=== PATIENT | female | born 1950 | race Caucasian/White ===

== ENCOUNTER 2021-04-09 15:49 | Inpatient (IN) | payer MEDICARE, OTHER ==
[~2021-04-09] VITALS: Ht 160 cm; Wt 77.6 kg
[~2021-04-09 15:49] MED LIST: BUPR150ER PO; LISI20 PO; LOSA50 PO; METO50ER; Norco 5-325 Ta1 EACH PO; SYNTHROID25 MCG PO; VENL37.5ER PO
[2021-04-09 16:34] LABS: BASOPHILS ABSOLUTE AUTO 0.01 K/mm3 (0.00-0.23); BASOPHILS PERCENT AUTO 0 % (0-2); EOSINOPHILS PERCENT AUTO 0 % (0-6); Hematocrit 41.3 % (33.0-51.0); Hemoglobin 13.6 g/dL (11.5-16.0); IMMATURE GRAN ABSOLUTE AUTO 0.05 K/mm3 (0.00-0.10); IMMATURE GRAN PERCENT AUTO 1 % (0-1); LYMPHOCYTES ABSOLUTE AUTO 1.21 K/mm3 (0.84-5.20); LYMPHOCYTES PERCENT AUTO 22 % (21-46); MONOCYTES ABSOLUTE AUTO 0.32 K/mm3 (0.16-1.47); MONOCYTES PERCENT AUTO 6 % (4-13); Mean Corpuscular HGB 31.1 pg (26.0-34.0); Mean Corpuscular HGB Conc 32.9 g/dL (31.5-36.5); Mean Corpuscular Volume 95 fL (80-100); Mean Platelet Volume 11.6 fL (9.1-12.4); NEUTROPHILS ABSOLUTE AUTO 3.97 K/mm3 (1.96-9.15); NEUTROPHILS PERCENT AUTO 71 % (41-73); Platelet Count 128 K/mm3 (150-400); RDW Standard Deviation 49.1 fL (35.1-46.3); Red Blood Cell Count 4.37 M/mm3 (3.80-5.20); White Blood Cell Count 5.56 K/mm3 (4.00-11.30)
[2021-04-09 16:56] LABS: Albumin, Blood 3.2 g/dL (3.4-5.0); Albumin/Globulin Ratio 0.7 (0.8-1.8); Bilirubin, Total 0.4 mg/dL (0.1-1.0); Calcium, Blood 8.6 mg/dL (8.5-10.1); Creatinine, Blood 1.06 mg/dL (0.40-1.00); Globulin, Blood 4.4 g/dL (2.2-4.0); Potassium, Blood 3.4 mmol/L (3.5-5.5); Total Protein, Blood 7.6 g/dL (6.4-8.2)
[2021-04-09] MEDS ORDERED: OMEP20ER PO (20:19)
[2021-04-09] MEDS ORDERED: ZINC15 PO (20:19)
[2021-04-09] MEDS ORDERED: [UNRECOGNIZED DRUG - CODE] PO (20:20)
--- NOTE | 2021-04-10 05:28 | NUR ---
SHIFT SUMMARY NEW ER ADMIT THIS SHIFT (2139) ON 5L O2, A&O, O2 NEEDS INCREASED TO 7L BY 2229 & DESATTING TO LOW 70'S ON 15L WHEN UP TO BSC, PLACED ON AIRVO @ 0100 (30L @ 70%) MAINTAINING SATS GREATER THAN 90%, MEDICATED W/TYLENOL 1X FOR TEMP 100.4 (REASSESS 97.8), REMAINS AFEBRILE THIS AM (97.7), SLEPT T/O THE NIGHT & SLEEPING AT THIS TIME, CALL LIGHT IN REACH, WILL CONT TO MONITOR UNTIL REPORT GIVEN TO DAY RN.
[2021-04-10 05:46] LABS: BASOPHILS ABSOLUTE AUTO 0.01 K/mm3 (0.00-0.23); BASOPHILS PERCENT AUTO 0 % (0-2); EOSINOPHILS PERCENT AUTO 0 % (0-6); Hematocrit 37.4 % (33.0-51.0); Hemoglobin 12.6 g/dL (11.5-16.0); IMMATURE GRAN ABSOLUTE AUTO 0.08 K/mm3 (0.00-0.10); IMMATURE GRAN PERCENT AUTO 1 % (0-1); LYMPHOCYTES ABSOLUTE AUTO 1.46 K/mm3 (0.84-5.20); LYMPHOCYTES PERCENT AUTO 22 % (21-46); MONOCYTES ABSOLUTE AUTO 0.26 K/mm3 (0.16-1.47); MONOCYTES PERCENT AUTO 4 % (4-13); Mean Corpuscular HGB 31.8 pg (26.0-34.0); Mean Corpuscular HGB Conc 33.7 g/dL (31.5-36.5); Mean Corpuscular Volume 94 fL (80-100); Mean Platelet Volume 11.8 fL (9.1-12.4); NEUTROPHILS PERCENT AUTO 72 % (41-73); Platelet Count 121 K/mm3 (150-400); RDW Coefficient Variation 14.1 % (11.7-14.2); RDW Standard Deviation 48.9 fL (35.1-46.3); Red Blood Cell Count 3.96 M/mm3 (3.80-5.20); White Blood Cell Count 6.51 K/mm3 (4.00-11.30)
[2021-04-10 06:03] LABS: Potassium, Blood 3.9 mmol/L (3.5-5.5)
--- NOTE | 2021-04-10 18:13 | NUR ---
SHIFT SUMMARY PATIENT ALERT AND ORIENTED THIS SHIFT. PATIENT ON AIRVO THROUGHOUT THIS SHIFT. RT IN THE ROOM ADJUSTING THE AIRVO MULTIPLE TIMES THIS SHIFT. PATIENT ENCOURAGED TO PRONE POSITION, WHICH SHE ONLY TOLERATED FOR APPROXIMATELY 1/2 HOUR. PATIENT ALSO MAINTAINED O2 SAT WELL IN LEFT SIDE LAYING POSITION. PATIENT IS A 1 ASSIST TO THE BEDSIDE COMODE. PATIENT DESATS WHEN TRANSFERING AND REQUIRES TIME TO REST BETWEEN SITTING UP AND STANDING. PATIENT ALTERNATED BETWEEN LYING AND SITTING UP IN BED THIS SHIFT, TALKING AND TEXTING ON HER PHONE WHEN NOT NAPPING. PATIENT CURRENTLY SITTING UP IN BED EATING DINNER.
--- NOTE | 2021-04-11 06:41 | NUR ---
SHIFT SUMMARY PT IS A 70 Y/O FEMALE, ADMITTED FOR PNA R/T COVID-19, AND CURRENTLY IN ENHANCED PRECAUTIONS. SHE IS A&O X 4, 1PA TO THE BSC. PT O2 DESATS TO THE 70S AND IS VERY DYSPNEIC WITH ANY EXERTION, AND IS EASILY TIRED. NO C/O ACUTE PAIN OR NAUSEA. VITAL SIGNS OTHERWISE STABLE. NO ACUTE CHANGES IN PT CONDITION NOTED DURING THE NIGHT. WILL CONTINUE TO MONITOR AND TREAT PER EMAR UNTIL HAND OFF TO DAY SHIFT RN.
--- NOTE | 2021-04-11 16:59 | NUR ---
SHIFT SUMMARY PATIENT ALERT AND ORIENTED THIS SHIFT. PATIENT REMAINS A 1 PERSON ASSIST TO THE BSC DUE TO O2 DESAT AND HELP WITH LINES AND CORDS. PATIENT IS PLEASANT AND COOPERATIVE WITH CARE. NO ACUTE CHANGES THIS SHIFT. PATIENT REMAINS ON AIRVO, SATING IN THE LOW 90S. PATIENT IS CURRENTLY LAYING IN BED RESTING.
--- NOTE | 2021-04-12 05:30 | NUR ---
SHIFT SUMMARY AOX4. COVID+. LUNGS DIM T/O. LABORED BREATHING c MINIMAL ACTIVITY, SUCH TRANSFER TO [facility]. SPO2 DROPS c TRANSFERS, ENCOURAGED USE OF BEDPAN, PT REFUSED. PT ON AIRVO AT BEGINNING OF SHIFT & TOLERATING WELL c SPO2 95-97%, ON 45L O2 & 45%. THEREFORE RT PLACED PT ON 10L HF NC AROUND 0300, SPO2 >90% UP UNTIL 0450 SPO2 SUSTAINED LOW 80'S, WHILE PT RESTING IN BED. INCREASED O2 TO 14L & SPO2 WOULD NOT INCREASE ABOVE 90% FOR OVER 15MIN. RT REPLACED V60 BIPAP/AIRVO @45L O2 & 45%, SPO2 90-92%. REST OF VITALS STABLE. DENIES N/V OR PAIN. REPORTS FEELING BLOATED, CONSTIPATED & LACK OF APPETITE, GAVE STOOL SOFTENER-NO BM YET. CALL LIGHT IN REACH. WCTM.
[2021-04-12 09:19] LABS: BASOPHILS ABSOLUTE AUTO 0.02 K/mm3 (0.00-0.23); BASOPHILS PERCENT AUTO 0 % (0-2); EOSINOPHILS PERCENT AUTO 0 % (0-6); Hematocrit 36.2 % (33.0-51.0); IMMATURE GRAN ABSOLUTE AUTO 0.16 K/mm3 (0.00-0.10); IMMATURE GRAN PERCENT AUTO 2 % (0-1); LYMPHOCYTES ABSOLUTE AUTO 1.31 K/mm3 (0.84-5.20); LYMPHOCYTES PERCENT AUTO 15 % (21-46); MONOCYTES ABSOLUTE AUTO 0.24 K/mm3 (0.16-1.47); MONOCYTES PERCENT AUTO 3 % (4-13); Mean Corpuscular HGB 31.1 pg (26.0-34.0); Mean Corpuscular HGB Conc 33.1 g/dL (31.5-36.5); Mean Corpuscular Volume 94 fL (80-100); Mean Platelet Volume 11.8 fL (9.1-12.4); NEUTROPHILS ABSOLUTE AUTO 7.06 K/mm3 (1.96-9.15); NEUTROPHILS PERCENT AUTO 80 % (41-73); Platelet Count 235 K/mm3 (150-400); RDW Coefficient Variation 14.4 % (11.7-14.2); RDW Standard Deviation 49.2 fL (35.1-46.3); Red Blood Cell Count 3.86 M/mm3 (3.80-5.20); White Blood Cell Count 8.79 K/mm3 (4.00-11.30)
[2021-04-12 09:48] LABS: Anion Gap 7 mmol/L (6-16); Blood Urea Nitrogen 27 mg/dL (8-24); Bun/Creatinine Ratio 29.6 (12.0-20.0); CO2, Blood 24 mmol/L (21-32); Calcium, Blood 8.1 mg/dL (8.5-10.1); Chloride, Blood 106 mmol/L (98-108); Creatinine, Blood 0.91 mg/dL (0.40-1.00); Glomerular Filtration Rate >60 (60-); Glucose, Blood 129 mg/dL (70-99); Potassium, Blood 3.8 mmol/L (3.5-5.5); Sodium, Blood 137 mmol/L (136-145)
--- NOTE | 2021-04-12 18:05 | NUR ---
Spiritual care note: Mrs. Hill was appreciative of prayer and rosary. She is a life-long Sikhism. She spoke at length about how "surprised" she and her contracted Covid-19. Apparently, both thought the media was "exaggerating." She admits to feeling fearful with the weakness caused by this illness. Mrs. Hill seems to have little understanding of this illness. She will benefit from an understandable explaination regarding what to expect moving forward. is at home and not quite as ill. She feels well-loved and supported by nieghbors and friends. she is hopeful for complete recovery and is satisfied with full-code status. We had an easy rapport and I will remain available.
--- NOTE | 2021-04-12 18:45 | NUR ---
SHIFT SUMMARY NAHOMI HAD CXR TH MORNING. DENIED PAIN. RT ATTEMPTED TO WEAN OFF AIRVO TO HIGH FLOW NC BUT PT DESATS TO LOW 70S. ON AIRVO 45L FLOW WITH 50% OXYGEN. SBA TO BSC, CALLING APPROPRIATELY. DENIES PAIN. TOOK MEDS PRESCRIBED. WCTM
--- NOTE | 2021-04-13 06:17 | NUR ---
SUMMARY PT O2 NEEDS DECREASED THIS SHIFT. PT CURRENTLY ON NC @ 12 LPM. PT STILL GETS SOB W/ EXERTION. PT DENIES PAIN OR FEVERS. PT CURRENTLY SLEEPING IN NO DISTRESS. CALL LIGHT IN REACH.
--- NOTE | 2021-04-13 17:33 | NUR ---
SUMMARY PT RESTING QUIETLY IN BED, WAKES EASILY, HAS BEEN ON 10-12L NC T/O THE DAY, OCC COUGHING FITS, DESATS WITH ANY ACTIVITY, PLEASANT AND COOPERATIVE WITH CARE, UP WITH 1P ASSIST, PREFERS PILLS IN APPLESAUCE, NO COMPLAINTS, WILL CONTINUE TO MONITOR
--- NOTE | 2021-04-14 05:13 | NUR ---
SHIFT SUMMARY PT IS A 70 Y/O FEMALE, ADMITTED WITH PNA R/T COVID19 AND CURRENTLY IN ENHANCED PRECAUTIONS. SHE IS A&O X 4, 1PA TO THE BSC. PT IS CURRENTLY ON 10-12 L O2 VIA NC. PT SATS IN THE 90S AT REST, BUT DESATS TO THE 70-80S WITH ANY EXERTION. VITAL SIGNS OTHERWISE STABLE. NO C/O ACUTE PAIN OR NAUSEA, BUT PT DOES REPORT DYSPNEA WITH EXERTION. NO OTHER ACUTE CHANGES IN PT CONDITION NOTED DURING THE NIGHT. WILL CONTINUE TO MONITOR AND TREAT PER EMAR UNTIL HAND OFF TO DAY SHIFT RN.
--- NOTE | 2021-04-14 17:04 | NUR ---
SUMMARY PT SITTING UP IN THE CHAIR AT THE BEDSIDE, PT HAS BEEN UP SEVERAL TIMES TO THE CHAIR AND TO THE COMMODE, PT IS A 1 PERSON ASSIST, PT DESATS INTO THE 70'S WITH ANY ACTIVITY, SEVERAL MINUTES OF INCREASED O2 NEEDED FOR PATIENT TO RECOVER, PT HAS BEEN ON 10-15 L HIGH FLOW O2 T/O THE DAY, DEPENDING ON ACTIVITY LEVEL, PT GIVEN INCENTIVE SPIROMETER AND EDUCATED ON ITS USE, ALSO ENCOURAGED MORE TIME UP IN THE CHAIR TO IMPROVE BREATHING, PT IS PLEASANT AND COOPERATIVE WITH CARE, VSS, WILL CONTINUE TO MONITOR
--- NOTE | 2021-04-14 17:14 | NUR ---
Spiritual care note: Kathleen appeared tired today and reports feeling weaker. I provided prayer at her request, but she was not up for more than this. [employer] will remain available.
--- NOTE | 2021-04-15 05:21 | NUR ---
SUMMARY PT O2 REQUIREMENTS WENT UP DURING THE NIGHT. PT IS BACK ON AIRVO. RT ANTICIPATES PT TRANSITIONING BACK TO NASAL CANNULA TODAY. PT CONTINUES TO HAVE DYSPNEA ON EXERTION. NO OTHER COMPLAINTS. PT DENIES CX PAIN. CALL LIGHT IN REACH. OF NOTE PT ONLY VOIDED ONCE THIS SHIFT. PT PO INTAKE IS LOW.
--- NOTE | 2021-04-15 12:05 | NUR ---
PT O2 STATUS THIS RN HAS BEEN CARING FOR PT THIS SHIFT. PT IS AOX4, BUT LETHARGIC AT TIMES. THIS RN ASSISTED PT TO [facility] AND PT O2 SATURATION DROPPED TO 63% WHILE ON 40 L AIRVO. T/O THIS AM, THIS RN OBSERVED PT SATS DROPPING TO 79% WHILE SLEEPING. SATS HAVE REMAINED STABLE AT 88-90% AT TIMES. THIS RN OBSERVED SATS AT 79% AND ENTERED ROOM WITH RT. RT INCREASED PT'S O2 REQUIREMENTS TO 50 L ON AIRVO. THIS RN ASSISTED RT WITH PRONING PT AT 1200 AND OBSERVED SATS GOING UP TO 95%. THIS RN CALLED DR. GUADALUPE AT 1210 AND SPOKE WITH PHYSICIAN ABOUT PT'S INCREASE IN OXYGEN REQUIREMENTS AND UNSTABLE OXYGEN STATUS. THIS RN RECOMMENDED TRANSFER TO PCU FOR GREATER MONITORING. DR. GUADALUPE IS AGREEABLE TO THIS. THIS RN WILL CONTINUE TO MONITOR PT STATUS.
[2021-04-15 13:09] LABS: Hematocrit 37.8 % (33.0-51.0); Hemoglobin 12.7 g/dL (11.5-16.0); Mean Corpuscular HGB 31.4 pg (26.0-34.0); Mean Corpuscular HGB Conc 33.6 g/dL (31.5-36.5); Mean Corpuscular Volume 93 fL (80-100); Mean Platelet Volume 10.5 fL (9.1-12.4); Platelet Count 153 K/mm3 (150-400); RDW Coefficient Variation 14.6 % (11.7-14.2); RDW Standard Deviation 50.6 fL (35.1-46.3); Red Blood Cell Count 4.05 M/mm3 (3.80-5.20); White Blood Cell Count 14.73 K/mm3 (4.00-11.30)
[2021-04-15 13:25] LABS: Bun/Creatinine Ratio 22.3 (12.0-20.0); Calcium, Blood 8.3 mg/dL (8.5-10.1); Creatinine, Blood 0.99 mg/dL (0.40-1.00); Potassium, Blood 4.1 mmol/L (3.5-5.5)
--- NOTE | 2021-04-15 16:33 | NUR ---
PT TRANSFER THIS RN TRANSFERRED PT TO PCU AT APPROXIMATELY 1620. PT IS AOX4. PT DENIES PAIN. PT IS ON 50 L VIA AIRVO WITH SATS AT 91-93%. THIS RN GAVE REPORT TO MINDA GUO. PT TRANSFERRED TO ROOM VIA BED ALONGSIDE GOLF COURSE KEEPER AND RT. THIS RN HAS PASSED OFF CARE TO MINDA GUO.
--- NOTE | 2021-04-15 18:00 | NUR ---
UPDATE AFTER RECIEVING PT FROM MEDICAL FLOOR, SPOKE WITH MINDA MCFARLAND REGARDING D.DIMER AND CHEST X-RAY RESULTS. MINDA MCFARLAND CALLED THIS RN BACK REGARDING DR. GUADALUPE'S PLAN IF PT CONT TO HAVE INCREASE IN OXYGEN DEMANDS. SEE PHYSICIAN NOTES.
--- NOTE | 2021-04-15 18:49 | NUR ---
SHIFT SUMMARY PT TRANSFERRED TO UNIT FROM MEDICAL FLOOR THIS AFTERNOON. AGREED WITH MEDICAL FLOOR RN'S ASSESSMENT OF PT. VS STABLE. OXYGEN SATURAION MAINTAINED ABOVE 92% ON AIRVO AT 60 L AND 90% FIO2. HR STABLE. BP STABLE. NO CP OR PRESSURE. PT SBA TO COMMODE NEEDED. PT DESATS DURING AMBULATION, ABLE TO RECOVER ONCE SEATED AND USES DEEP BREATHING. WILL CONT TO MONITOR UNTIL REPORT GIVEN TO NIGHTSHIFT RN.
--- NOTE | 2021-04-15 20:02 | NUR ---
PHYSICIAN NOTIFIED PHYSICIAN NOTIFIED OF PT'S INCREASE IN OXYGEN DEMAND FROM 50L TO 60L ON AIRVOW STILL AT 80% FIO2. PHYSICIAN ALSO NOTIFIED OF PREVIOUS PHYSICIAN NOTE REGARDING CT SCAN AND INCREASE IN ANTICOAGULAITON IF O2 DEMAND INCREASES.
--- NOTE | 2021-04-16 00:15 | NUR ---
PRONE WITH PENA CATHETER SIZE 16 COUDE PENA CATHETER WAS PLACED DUE TO PT'S SIGNIFICANT DECREASE IN SPO2 % W/ACTIVITY. SPO2 WAS DROPPING INTO THE LOW 80'S WITH USE OF THE BED WALTER WITH EXTENDED RECOVERY TIME. PT WAS REPORTED TO DROP INTO THE 70'S BY DAY SHIFT RN WHILE ATTEMPTING TO USE BSC. PT CONSENTED TO PENA CATHETER, EDUCATION WAS PROVIDED. PT WAS GIVEN 0.25 MG IV ATIVAN PRIOR TO PROCEDURE. PT CONSENTED TO PRONE POSITION. AIRVO SETTINGS 55 L 70% FIO2 SPO2 97% AFTER 5 MINUTES IN PRONE. SPO2 REMAINED >94% WHILE PENA WAS PLACED ON 60 L 90% FIO2. RT & REFRIGERATION SYSTEM INSTALLER NOTIFIED OF CHANGES. CALL LIGHT IN REACH, PT RESTING QUIETLY
[2021-04-16 01:36] LABS: Source, Urine Catheter
[2021-04-16 01:40] LABS: Bilirubin, Urine Neg (Neg); Blood, Urine Neg (Neg); Glucose Qualitative, Urine Neg (Neg); Ketones, Urine Neg (Neg); Leukocyte Esterase, Urine Neg (Neg); Nitrite, Urine Neg (Neg); Protein, Urine Neg (Neg); Urobilinogen, Urine NORM (Normal)
[2021-04-16 01:42] LABS: Appearance, Urine Clear (Clear); Color, Urine Yellow (P-Yellow)
[2021-04-16 03:50] LABS: Hematocrit 34.9 % (33.0-51.0); Hemoglobin 11.9 g/dL (11.5-16.0); Mean Corpuscular HGB 31.6 pg (26.0-34.0); Mean Corpuscular HGB Conc 34.1 g/dL (31.5-36.5); Mean Corpuscular Volume 93 fL (80-100); Mean Platelet Volume 10.8 fL (9.1-12.4); Platelet Count 147 K/mm3 (150-400); RDW Coefficient Variation 14.6 % (11.7-14.2); RDW Standard Deviation 49.1 fL (35.1-46.3); Red Blood Cell Count 3.77 M/mm3 (3.80-5.20); White Blood Cell Count 12.21 K/mm3 (4.00-11.30)
[2021-04-16 04:08] LABS: Anion Gap 7 mmol/L (6-16); Blood Urea Nitrogen 18 mg/dL (8-24); Bun/Creatinine Ratio 21.9 (12.0-20.0); CO2, Blood 22 mmol/L (21-32); Calcium, Blood 8.2 mg/dL (8.5-10.1); Chloride, Blood 107 mmol/L (98-108); Creatinine, Blood 0.82 mg/dL (0.40-1.00); Glomerular Filtration Rate >60 (60-); Glucose, Blood 102 mg/dL (70-99); Potassium, Blood 4.1 mmol/L (3.5-5.5); Sodium, Blood 136 mmol/L (136-145)
[2021-04-16 04:11] LABS: BAND PERCENT MAN 1 % (0-8); BASOPHILS PERCENT MAN 0 % (0-2); EOSINOPHILS PERCENT MAN 0 % (0-6); LYMPHOCYTES ABSOLUTE MAN 1.09 K/mm3 (0.84-5.20); LYMPHOCYTES PERCENT MAN 9 % (21-46); METAMYELOCYTE ABSOLUTE MAN 0.24 K/mm3 (0.00-0.00); METAMYELOCYTE PERCENT MAN 2 % (0-0); MONOCYTES ABSOLUTE MAN 0.36 K/mm3 (0.16-1.47); MONOCYTES PERCENT MAN 3 % (4-13); MYELOCYTE ABSOLUTE MAN 0.12 K/mm3 (0.00-0.00); MYELOCYTE PERCENT MAN 1 % (0-0); NEUTROPHILS ABSOLUTE MAN 10.37 K/mm3 (1.96-9.15); SEG NEUTROPHILS PERCENT MAN 84 % (41-73); TOTAL CELLS COUNTED 100
--- NOTE | 2021-04-16 07:28 | NUR ---
SUMMARY PT CURRENTLY IN PRONE POSITION, SPO2 98%, O2 VIA AIRVO @ 55 L 70% FIO2, PT HAS TOLERATED PRONE POSITION FAIRLY WELL, SHE WILL SLOWLY FLIP TO HER BACK WHILE SLEEPING & O2 SATS WILL DROP DOWN TO 87-92%. PENA CATHETER PATENT, BELOW BLADDER, CLEAR, YELLOW URINE NOTED. RT & STUDENT LOAN COUNSELOR UPDATED ON PT'S STATUS FREQUENTLY. CALL LIGHT IN REACH. REPORT GIVEN TO DAY RN
--- NOTE | 2021-04-16 13:45 | NUR ---
UPDATE PHYSICIAN UPDATED ON PT'S RESPIRATORY RATE. NO NEW ORDERS AT THIS TIME.
[2021-04-16 15:48] LABS: PCO2 Arterial 26.7 mmHg (35-45); PO2 Arterial 60.6 mmHg (80-100); pH Blood Arterial 7.48 (7.35-7.45)
--- NOTE | 2021-04-16 18:48 | NUR ---
SHIFT SUMMARY/PT TRANSFER PT ALERT AND ORIENTED X 4. CONFUSED AT TIMES. HR STABLE, SINUS TACH AT TIMES. BP STABLE. NO CP OR PRESSURE REPORTED. PT ABLE TO TURN SELF IN BED. PHYSICIAN NOTIFIED OF PT'S INCREASED RESPIRATORY RATE AND OXYGEN DEMAND. OXYGEN SATURATION MAINTAINED ABOVE 88% ON 65 L AND 75% FIO2 ON AIRVO. PT TO CT SCAN THIS AFTERNOON. RESULTS PROVIDED TO PT FROM PHYSICIAN. FAMILY UPDATED. PT TO ICU 5, REPORT GIVEN TO MINDA DONOVAN. PT TRANSFERRED TO ICU 5 WITH ALL BELONGINGS BY BED WITH MINIBUS DRIVER AND RESPIRATORY CARE. PT'S SON UPDATED ON PT'S TRANSFER. PHYSICIAN UPDATED.
--- NOTE | 2021-04-16 19:00 | NUR ---
TRANSFER TO ICU FROM PCU PATIENT ARRIVED TO ICU FROM PCU AT 1838. PATIENT ALERT AND ORIENTED. AFEBRILE. DENIES PAIN. PATIENT SATTING 88% AND GREATER ON AIRVO AT 65 L AND 75% FIO2. HR AND BP STABLE. PENA IN PLACE. PATIENT ORIENTED TO UNIT, ROOM AND CALL LIGHT. BED LOW. REPORT GIVEN TO ASSUMING TITLE INSURANCE EXAMINER NURSE.
--- NOTE | 2021-04-16 20:03 | NUR ---
ASSUMED PT CARE FROM MINDA DONOVAN AT 1915 PT SITTING UP IN BED. ALERT AND ORIENTED AND ABLE TO MAKE NEEDS KNOWN. APPEARS FORGETFUL AT TIMES, BUT OVERALL PLEASANT AND COOPERATIVE WITH CARES. AIRVO AT 65L WITH 75% FIO2. SHE IS NOTED TO DROP HER OXYGENATION WITH CONVERSATION AND ANY SLIGHT CHANGE IN POSITION; LOWEST SPO2 NOTED TO BE 84% AND IT TAKES HER A LITTLE WHILE TO RECOVER HER OXYGEN SATURATIONS. PT HAS A 22G TO LEFT HAND AND A 20G TO RIGHT AC; BOTH SALINE LOCKED. PENA CATHETER IS PATENT AND DRAINING DEBBIE COLORED URINE TO GRAVITY. NSR WITH HR 80-90'S. VSS, SEE FLOWSHEET. PT HASN'T HAD A BM SINCE 04/08; SHE RECEIVED HER SCHEDULED BOWEL CARE MEDS, WELL HER PRN MIRALAX PER ORDERS. PT STATES SHE STRUGGLES WITH HAVING ROUTINE BOWEL MOVEMENTS AT HOME, BUT SHE HAS NEVER GONE THIS LONG. BOWEL TONES ABSENT AT TIME OF ASSESSMENT. SEE SHIFT SUMMARY FOR FURTHER DETAILS.
--- NOTE | 2021-04-17 05:27 | NUR ---
END OF SHIFT SUMMARY NO SIGNIFICANT CHANGES SINCE LAST ENTRY. PT REMAINS ALERT AND ORIENTED AND ABLE TO MAKE NEEDS KNOWN. PT SLEPT MOST OF NIGHT HARD TURNED TO RIGHT SIDE AND THEN WAS ASSISTED TO LEFT. UNABLE TO FULLY PRONE D/T COMFORTABILITY; HOWEVER, SHE APPEARED TO TOLERATE HARD TURNS WITH ASSIST FOR PILLOW POSITOINING. LUNG SOUNDS REMAIN CLEAR TO DIMINSHED T/O. WORK OF BREATHING NOTED WITH MINIMAL EXERTIONAL ACTIVITIES. AIRVO AT 55L FIO2 75% WITH SPO2 >90%. CREPITUS NOTED TO RIGHT SIDE OF NECK, BUT NO CHANGE COMPARED TO EARLIER ASSESSMENT. NSR WITH HR 80'S; BP'S STABLE, SEE FLOWSHEET. PENA CATHETER REMAINS PATENT AND DRAINING CLEAR, DEBBIE COLORED URINE TO GRAVITY. CALL LIGHT WITHIN REACH; PT ABLE TO MAKE NEEDS KNOWN. WILL CONTINUE TO MONITOR UNTIL REPORT IS HANDED OFF TO ONCOMING RN.
--- NOTE | 2021-04-17 08:41 | NUR ---
CARE ASSUMED ASSESSMENTS COMPLETED, PT ALERT AND ORIENTED X4, DENIES SOB AT COMPLETE REST, DENIES NAUSEA AND PAIN. HR SINUS 80'S, BP STABLE. CREPITUS TO R NECK, LS CLEAR, RUB NOTED T/O. PT COUGHING UP SMALL AMOUNTS OF CLEAR SPUTUM. AIRVO 55L, 75% FIO2, SPO2 MID 90'S, DESAT TO HIGH 80'S WITH ACTIVITY, RECOVERS QUICKLY WITH REST. ABD FIRM, BT PRESENT, MIRALAX GIVEN, AWAINT BM. URINE CLEAR DEBBIE, PENA SECURED. PT SITTING UP IN BED, PO MEDS TAKEN IN APPLESAUCE, PT NOW EATING BREAKFAST. PT EATING SLOWLY SHE HAS TO REST BETWEEN BITES D/T SOB, SPO2 MAINTAINING 90'S.
--- NOTE | 2021-04-17 14:30 | NUR ---
UPDATE PT HAS BEEN NAPPING OFF AND ON TODAY, DENIES SOB AT REST. AIRVO SETTINGS UNCHANGED, PT BECOMES SOB AND DESATS TO MID 80'S WITH MINIMAL EXERTION. SPO2 AT REST >95%, LS REMAIN CLEAR. PT'S APPETITE POOR TODAY, REFUSED LUNCH AND ATE ONLY A ARACELI CRACKER. PO FLUID AND NUTRITION INTAKE ENCOURAGED. PT PLACED IN PRONE POSITION AT 1430.
--- NOTE | 2021-04-17 19:33 | NUR ---
END OF SHIFT PT STAYED IN PRONE POSITION UNTIL DINNER AT 1800, ABOUT 3.5 HOURS, TOLERATED WELL WITH SPO2 >95% WITH AIRVO SETTINGS UNCHANGED. PT THEN SAT UP TO EAT DINNER, APPETITE IMPROVED TONIGHT, ATE ABOUT 40%. LS CLEAR THIS EVENING, NO RUB OR CREPITUS NOTED. HR SINUS, BP STABLE. NO BM THIS SHIFT. URINE OUTPUT ADEQUATE BUT DARK, PT ENCOURAGED TO DRINK MORE FLUIDS. PT NOW SITTING UP IN BED WATCHING TV, DENIES NEEDS OR C/O, DENIES SOB AT REST. PALLOR NOTED ON AND OFF T/O DAY BUT COLORING APPEARS NORMAL AT THIS TIME. SON IN FOR A BRIEF VISIT THIS AFTERNOON, OTHER FAMILY MEMBERS UPDATED.
--- NOTE | 2021-04-17 22:47 | NUR ---
ASSUMED PT CARE AT 1915 FROM MINDA REED PT SITTING UPRIGHT IN BED. REMAINS ALERT AND ORIENTED AND ABLE TO MAKE HER NEEDS KNOWN. AIRVO UNCHANGED AT 55L WITH FIO2 75%. SPO2 >90%, RR 20'S. PT NOTED TO BECOME SOB WITH CONVERSATION, WELL WITH EATING AND DRINKING. ENCOURAGED PT TO DRINK AN ENSURE D/T POOR CONSUMPTION OF MEALS TODAY PER REPORT; HOWEVER, PT DECLINED AND STATED SHE WAS EATING ADEQUATE AMOUNTS TODAY. STILL NO BM; CONTINUING TO ADMINISTER SCHEDULED BOWEL CARE MEDS. PT ABLE TO HARD TURN TO RIGHT SIDE FOR SLEEP; PT IS ABLE TO REPOSITION SELF AND SHIFT OWN WEIGHT. CALL LIGHT WITHIN REACH AND PT IS ABLE TO MAKE HER NEEDS KNOWN.
[2021-04-18 05:33] LABS: Base Excess Venous -1.6 mmol/L; Bicarbonate Venous 22.8 mmol/L (24.0-30.0); PO2 Venous 46.2 mmHg (38-42)
--- NOTE | 2021-04-18 05:44 | NUR ---
END OF SHIFT SUMMARY PT REMAINS ON AIRVO 55L; FIO2 75%. SLEPT MOST OF NIGHT ON RIGHT SIDE AND RECENTLY SWITCHED OVER TO LEFT SIDE. SHE IS ABLE TO REPOSITION SELF WITH ASSIST FOR PILLOW PLACEMENT. OXYGENATION DOES DECLINE WITH EXERTIONAL ACTIVITIES AND IT DOES TAKE A WHILE TO RECOVER HER SATURATIONS; LOWEST SPO2 WITH REPOSITIONING IN BED NOTED TO BE 77%. CREPITUS REMAINS UNCHANGED TO RIGHT SIDE OF NECK. LUNG SOUNDS REMAIN CLEAR T/O; NO RUBS. PENA PATENT AND DRAINING DARK, DEBBIE COLORED URINE TO GRAVITY. CALL LIGHT WITHIN REACH AND PT IS ABLE TO MAKE NEEDS KNOWN.
[2021-04-18 06:05] LABS: BASOPHILS ABSOLUTE AUTO 0.06 K/mm3 (0.00-0.23); BASOPHILS PERCENT AUTO 1 % (0-2); EOSINOPHILS ABSOLUTE AUTO 0.03 K/mm3 (0.00-0.68); EOSINOPHILS PERCENT AUTO 0 % (0-6); Hematocrit 47.1 % (33.0-51.0); Hemoglobin 15.8 g/dL (11.5-16.0); IMMATURE GRAN ABSOLUTE AUTO 0.84 K/mm3 (0.00-0.10); IMMATURE GRAN PERCENT AUTO 7 % (0-1); LYMPHOCYTES ABSOLUTE AUTO 0.67 K/mm3 (0.84-5.20); LYMPHOCYTES PERCENT AUTO 5 % (21-46); MONOCYTES ABSOLUTE AUTO 0.31 K/mm3 (0.16-1.47); MONOCYTES PERCENT AUTO 3 % (4-13); Mean Corpuscular HGB 32.2 pg (26.0-34.0); Mean Corpuscular HGB Conc 33.5 g/dL (31.5-36.5); Mean Corpuscular Volume 96 fL (80-100); NEUTROPHILS ABSOLUTE AUTO 10.74 K/mm3 (1.96-9.15); NEUTROPHILS PERCENT AUTO 85 % (41-73); RDW Coefficient Variation 15.7 % (11.7-14.2); RDW Standard Deviation 52.8 fL (35.1-46.3); White Blood Cell Count 12.65 K/mm3 (4.00-11.30)
[2021-04-18 06:09] LABS: Alanine Aminotransfer (ALT/SGP 29 U/L (12-78); Albumin, Blood 2.3 g/dL (3.4-5.0); Albumin/Globulin Ratio 0.5 (0.8-1.8); Alk Phos 85 U/L (50-136); Anion Gap 9 mmol/L (6-16); Aspartate Aminotrans (AST/SGOT 56 U/L (12-37); Bilirubin, Total 0.4 mg/dL (0.1-1.0); Blood Urea Nitrogen 15 mg/dL (8-24); Bun/Creatinine Ratio 20.1 (12.0-20.0); CO2, Blood 20 mmol/L (21-32); Calcium, Blood 8.5 mg/dL (8.5-10.1); Chloride, Blood 108 mmol/L (98-108); Creatinine, Blood 0.75 mg/dL (0.40-1.00); Globulin, Blood 4.4 g/dL (2.2-4.0); Glomerular Filtration Rate >60 (60-); Glucose, Blood 83 mg/dL (70-99); Magnesium, Blood 2.3 mg/dL (1.6-2.4); Phosphorus, Blood 3.5 mg/dL (2.5-4.9); Potassium, Blood 4.3 mmol/L (3.5-5.5); Sodium, Blood 137 mmol/L (136-145); Total Protein, Blood 6.7 g/dL (6.4-8.2)
[2021-04-18 07:31] LABS: Mean Platelet Volume 11.1 fL (9.1-12.4); Platelet Count 95 K/mm3 (150-400)
--- NOTE | 2021-04-18 10:00 | NUR ---
CARE ASSUMED ASSESSMENTS COMPLETED, PT REMAINS ALERT AND ORIENTED, APPROPRIATE AND COOPERATIVE. AIRVO 55L FIO2 75%, SPO2 LOW 90'S AT REST. LS DIMINISHED T/O, COUGH PRODUCTIVE OF SMALL AMOUNTS OF CLEAR SPUTUM. PT DENIES SOB AT REST, BECOMES SOB WITH TALKING, EATING, AND REPOSITIONING, DESAT TO MID 80'S BUT RECOVERS QUICKLY WITH REST AND DEEP BREATHING. HR SINUS 90'S, BP STABLE. PT DENIES HAVING BM LAST NIGHT, BOWEL CARE MEDS ADMINISTERED. PT REFUSED BREAKFAST, WILL DISCUSS NUTRITION WITH DR. GUADALUPE. AM CARE COMPLETED, PT REFUSES REPOSITION AT THIS TIME BUT IS AGREEABLE TO PRONING LATER TODAY.
--- NOTE | 2021-04-18 11:12 | NUR ---
AIRVO CHANGE PT HAD PROLONGED DESAT TO 84-86% WITH TALKING ON PHONE, RT AT BEDSIDE, AIRVO SETTINGS CHANGED TO 60l, FIO2 REMAINS 75%. SPO2 NOW 90-92%.
--- NOTE | 2021-04-18 16:50 | NUR ---
UPDATE PT PRONED AFTER LUNCH FOR ABOUT 3 HOURS, TOLERATED WELL WITH SPO2 >95% WITH ARIVO SETTINGS 60L, FIO2 65%, SLEPT. PT WOKE AROUND 1630, ASSISTED TO RETURN TO FOWLERS POSITION, DESAT TO LOW 80'S, RECOVERED WITH REST AND DEEP BREATHING. UPDATE GIVEN TO PT'S SON, PT NOTIFIED. LS DIMINISHED IN BASES THIS EVENING, HR SINUS 80'S, BP STABLE. PT HAS NOT HAD A BM TODAY, DULCOLAX SUPPOSITORY ADMINISTERED, AWAITING RESULTS. PT WATCHING TV AT THIS TIME, DENIES NEEDS. DR. GUADALUPE IN TO VISIT THIS AFTERNOON, NOTIFIED OF PT'S POOR NUTRITIONAL INTAKE, DIETARY CONSULT FOR CLNIMIX.
--- NOTE | 2021-04-18 17:31 | NUR ---
Spiritual care note: Visited pt at bedside. Provided prayer/encouragement. Pt remains hopeful. Denies needs. I will remain available.
--- NOTE | 2021-04-18 18:32 | NUR ---
END OF SHIFT CLINIMIX INFUSING AT 50ML/HR. PT SAT ON BEDPAN AFTER DULCOLAX WITH NO RESULTS, STATES SHE FEELS LIKE BM IS IN RECTUM BUT SHE IS UNABLE TO HAVE A BM. SMALL AMOUNT OF HARD STOOL DISIMPACTED FROM RECTUM. PT TAKEN OFF OF BEDPAN, REPOSITIONED IN BED FOR DINNER. APPETITE REMAINS POOR. LS CLEAR, AIRVO WITH 60L AND FIO2 65%, SPO2 90'S AT REST, PT CONTINUES TO DESAT WITH MINIMAL EXERTION. HR SINUS, BP STABLE.
--- NOTE | 2021-04-18 20:07 | NUR ---
ASSUMED PT CARE FROM MINDA REED AT 1915 PT SITTING UP IN BED ALERT AND ORIENTED AND ABLE TO MAKE NEEDS KNOWN. AIRVO 60L FOI2 75%; HOWEVER, WHILE ASSISTING TO BED WALTER OXYGENATION DROPPED TO THE 70'S; THEREFORE, FIO2 INCREASED TO 100%. LUNG SOUNDS REMAIN CLEAR T/O ALL LOBES. CREPITUS HAS DECREASED SINCE LAST NIGHTS ASSESSMENTS, BUT STILL PRESENT TO RIGHT SIDE OF NECK. NSR WITH HR 90'S. BP'S STABLE, SEE FLOWSHEET. PENA CATHETER REMAINS PATENT AND DRAINING DARK, DEBBIE COLORED URINE TO GRAVITY. NS TKO TO 20G TO LEFT HAND AND CLINIMIX AT 50MLS/HR VIA 20G TO R AC. PT PROVIDED WITH A SUPPOSITORY AND PRN MIRALAX ON DAY SHIFT AND WAS ABLE TO HAVE A SMALL, HARD BM FOLLOWED BY A LITTLE BIT OF LIQUID STOOL. PT ATE <25% OF DINNER ON TRAY; VERY POOR APPETITE. ASSISTED WITH HARD TURNING TO RIGHT SIDE AND PILLOW PLACEMENT IN WHICH OXYGENATION IMPROVED AND FIO2 WAS ABLE TO BE DECREASED TO 85%. CALL LIGHT IS WITHIN REACH AND PT IS ABLE TO MAKE NEEDS KNOWN.
--- NOTE | 2021-04-19 06:15 | NUR ---
END OF SHIFT SUMMARY PT SLEPT MOST OF NIGHT HARD TURNED TO BOTH RIGHT AND LEFT SIDES. PT ASKED ABOUT LYING ON HER BELLY IN WHICH SHE STATED IT WAS MORE COMFORTABLE TO SLEEP ON HER SIDES. AIRVO REMAINS AT 60L WITH FIO2 85%, SPO2 90-95%. STILL BECOMES SOB WITH CONVERSATION, WELL WITH MINIMAL ACTIVITY IN WHICH OXYGENATION DROPS AND TAKES A WHILE TO RECOVER. MINIMAL CREPITUS REMAINS TO RIGHT SIDE OF NECK. LUNG SOUNDS REMAIN CLEAR/DIM T/O. NSR WITH HR 80'S. BP'S STABLE, SEE FLOWSHEET. CLINIMIX INFUSING AT 50MLS/HR. PENA CATHETER IS PATENT AND DRAINING DARK, DEBBIE COLORED URINE TO GRAVITY. CALL LIGHT IS WITHIN REACH AND PT IS ABLE TO MAKE NEEDS KNOWN. WILL CONTINUE TO MONITOR UNTIL REPORT IS HANDED OFF TO ONCOMING RN.
--- NOTE | 2021-04-19 07:45 | NUR ---
ASSUMED CARE REPORT RECIEVED. PT IS LAYING IN BED AWAKE, ALERT, AND ORIENTED. PT ANSWERS ALL QUESTIONS APPROPRIATELY. PT DENIES PAIN OR DISCOMFORT AT THIS TIME. PT DENIES SOB AT REST. AIRVO IN PLACE 60L, FIO2 INCREASED TO 90%. MINIMAL AMOUNT OF CREPITUS NOTED WITH PALPATION TO RIGHT NECK/CLAVICLE. CLINIMIX INFUSING AT 50 ML/HR AND NS TKO. PENA IN PLACE WITH DARK YELLOW URINE OUTPUT NOTED. PT REPOSITIONS SELF IN BED INDEPENDENTLY. WILL CONTINUE TO MONITOR.
--- NOTE | 2021-04-19 14:27 | NUR ---
Pt. is in bed , I stood by the door and talked and prayed for her, she gave thanmks for that.
--- NOTE | 2021-04-19 16:52 | NUR ---
SHIFT SUMMARY NO ACUTE CHANGES THIS SHIFT. PT HAS REMAINED AWAKE, ALERT, AND ORIENTED. PT HAS DENIED PAIN THIS SHIFT. PT ONLY COMPLAINS OF SOB WITH ACTIVITY. PT REMAINS ON AIRVO 60L, FI02 65%. FIO2 REQUIREMENTS DOWN SIGNIFICANTLY WHEN PT PRONE. PT IS PRONE AT THIS TIME. VITAL SIGNS STABLE. CLINIMIX INFUSING AT 50 ML/HR AND NS TKO. PENA REMAINS IN PLACE WITH YELLOW URINE OUTPUT NOTED. PT WITH POOR APPETITE. PT SON AT BEDSIDE AT THIS TIME. WILL CONTINUE TO MONITOR AND REPORT OFF TO ONCOMING RN.
--- NOTE | 2021-04-19 20:00 | NUR ---
ASSUMED CARE OF PT AT 1915. REPORT RECEIVED. PT PRESENTS IN BED. AIRVO AT 60 L/M FLOW WITH FIO2 80%. PT MAINTAINS > 90 PERCENT SATURATIONS WITH THIS. ABLE TO HOLD FULL CONVERSATION. DENIES SOB AT THIS TIME. NO COMPLAINTS N/V OR PAIN. WILL REVIEW CHART AND PLAN OF CARE FOR THIS PT.
[2021-04-20 03:46] LABS: Hematocrit 32.5 % (33.0-51.0); Hemoglobin 11.1 g/dL (11.5-16.0); Mean Corpuscular HGB 32.4 pg (26.0-34.0); Mean Corpuscular HGB Conc 34.2 g/dL (31.5-36.5); Mean Corpuscular Volume 95 fL (80-100); Mean Platelet Volume 10.1 fL (9.1-12.4); Platelet Count 181 K/mm3 (150-400); RDW Coefficient Variation 15.1 % (11.7-14.2); RDW Standard Deviation 51.7 fL (35.1-46.3); Red Blood Cell Count 3.43 M/mm3 (3.80-5.20)
[2021-04-20 04:17] LABS: Alanine Aminotransfer (ALT/SGP 50 U/L (12-78); Albumin, Blood 1.9 g/dL (3.4-5.0); Albumin/Globulin Ratio 0.5 (0.8-1.8); Alk Phos 109 U/L (50-136); Anion Gap 6 mmol/L (6-16); Aspartate Aminotrans (AST/SGOT 51 U/L (12-37); Bilirubin, Total 0.2 mg/dL (0.1-1.0); Blood Urea Nitrogen 19 mg/dL (8-24); Bun/Creatinine Ratio 27.6 (12.0-20.0); CO2, Blood 24 mmol/L (21-32); Calcium, Blood 8.5 mg/dL (8.5-10.1); Chloride, Blood 107 mmol/L (98-108); Creatinine, Blood 0.69 mg/dL (0.40-1.00); Globulin, Blood 4.1 g/dL (2.2-4.0); Glomerular Filtration Rate >60 (60-); Glucose, Blood 103 mg/dL (70-99); Magnesium, Blood 2.3 mg/dL (1.6-2.4); Potassium, Blood 4.1 mmol/L (3.5-5.5); Sodium, Blood 137 mmol/L (136-145)
--- NOTE | 2021-04-20 07:45 | NUR ---
Assumed care of pt at 0700. Bedside report received from Wilfredo PERLA. Pt A&O x 4. Answers questions. Follows commands. Verbalizes needs. Pleasant and cooperative with care. Bedfast due to oxygen demands. SR per monitor. BP stable. SpO2 90% or greater with AirVO at 60 LPM and 80% FiO2, however pt desats with minimal activity. Pt repositioned with HOB in fowlers position and desated into 70s. Recovered, but desated while eating to high 70s, low 80s, so FiO2 increased to 80%. Lungs dim in bases. Pt has productive cough with small amounts of thin, clear sputum. Mora catheter in place, draining clear, yellow urine. Bed in lowest position. Call light in reach. Pt denies need at this time.
--- NOTE | 2021-04-20 10:51 | NUR ---
At rest, pt's SpO2 is 94-95%, however with slight movement (i.e. moving hands or arms) pt desaturates below 88%. FiO2 is currently at 100% with 60 LPM flow. Pt not interested in proning, initially because she felt too full after eating breakfast and now she is too "wiped out" after receiving bedbath. Per Dr Garrison, okay to consult pulmonology. Case discussed with Dr Telles who states he will see patient. Case discussed with respiratory therapist, Theo, who states plan for pt to facetime with granddaughter, Nathalie, and then he is going to assist the patient to prone.
--- NOTE | 2021-04-20 12:03 | NUR ---
Pt is in prone positioning. Highflow humidified NC is at 65 LPM flow and 80% FiO2. SPO2 92-96%. Pt continues to desaturate with any movement. This RN offered to turn pt's bed so she could see TV, pt declined. Offered to provide patient with her cell phone, pt declined. States "I'm just gonna lay here and pray". This RN left pt's rosaprashanth in her reach. Told pt her and her son, Alonzo, will be visiting her today. Pt states plan to remain in prone positioning while visiting, stating "I am gonna fight this".
--- NOTE | 2021-04-20 18:25 | NUR ---
Pt supinated. Desaturated with activity. Sats remained 82-83%. FiO2 titrated up to 100%. Flow is 60 LPM. SpO2 93%. Pt eating dinner at this time, will attemtp to titrate FiO2 down when pt is done eating.
--- NOTE | 2021-04-20 18:28 | NUR ---
SUMMARY At this time, pt is A&O x 4. Answers questions. Follows commands. Verbalizes needs. Pleasant and cooperative with care. SpO2 90% or greater with 60 LPM and 100% FiO2 high flow humidified NC connected to V60. SR per monitor, rate 99. BP stable. Mora catheter had excellent output of clear, yellow urine. Pt ate breakfast and dinner. Did not want lunch when she was in prone positioning. Pt did not have BM this shift. Miralax offered, but pt did not drink it because she was proned shortly after it was provided. Will continue to closely monitor until care handoff and bedside report with oncoming RN.
--- NOTE | 2021-04-20 20:00 | NUR ---
ASSUMED CARE OF PT AT 1915. REPORT RECEIVED. PT PRESENTS IN BED. AIRVO IN USE AT 60 L/M FLOW WITH 100 PERCENT FIO2. PT TOLERATING THIS WELL. OF NOTE: WITH ANY EXERTION PT WILL DESATURATE TO 76 PERCENT. ENCOURAGED PT TO BREATHE DEEP THROUGH NOSE. PT RETURNS TO 90-93 PERCENT SATURATION. IS ABLE TO EXPECTORATE LIGHT BLOOD TINGED SECRETIONS. PT ALERT AND ORIENTED. PLEASANT AND COOPERATIVE WITH CARE AND ASSESSMENT. WILL REVIEW CHART AND PLAN OF CARE FOR THIS PT.
--- NOTE | 2021-04-20 23:00 | NUR ---
PT PRONE WITH ASSIST. DOES REMAINS SOMEWHAT TO HER RIGHT SIDE. PT'S OXYGEN SATURATIONS IMPROVE WITH THIS. TEACHING HAS DONE ON PRONING AND WITH BREATHING TECHNIQUES.
[2021-04-21 06:18] LABS: BASOPHILS ABSOLUTE AUTO 0.03 K/mm3 (0.00-0.23); BASOPHILS PERCENT AUTO 0 % (0-2); EOSINOPHILS ABSOLUTE AUTO 0.04 K/mm3 (0.00-0.68); EOSINOPHILS PERCENT AUTO 0 % (0-6); Hematocrit 35.2 % (33.0-51.0); Hemoglobin 11.8 g/dL (11.5-16.0); IMMATURE GRAN ABSOLUTE AUTO 0.44 K/mm3 (0.00-0.10); IMMATURE GRAN PERCENT AUTO 4 % (0-1); LYMPHOCYTES ABSOLUTE AUTO 1.02 K/mm3 (0.84-5.20); LYMPHOCYTES PERCENT AUTO 10 % (21-46); MONOCYTES ABSOLUTE AUTO 0.46 K/mm3 (0.16-1.47); MONOCYTES PERCENT AUTO 4 % (4-13); Mean Corpuscular HGB 32.3 pg (26.0-34.0); Mean Corpuscular HGB Conc 33.5 g/dL (31.5-36.5); Mean Corpuscular Volume 96 fL (80-100); Mean Platelet Volume 11.1 fL (9.1-12.4); NEUTROPHILS ABSOLUTE AUTO 8.48 K/mm3 (1.96-9.15); NEUTROPHILS PERCENT AUTO 81 % (41-73); Platelet Count 206 K/mm3 (150-400); RDW Coefficient Variation 14.8 % (11.7-14.2); RDW Standard Deviation 51.6 fL (35.1-46.3); Red Blood Cell Count 3.65 M/mm3 (3.80-5.20); White Blood Cell Count 10.47 K/mm3 (4.00-11.30)
[2021-04-21 06:37] LABS: Anion Gap 6 mmol/L (6-16); Blood Urea Nitrogen 21 mg/dL (8-24); Bun/Creatinine Ratio 26.1 (12.0-20.0); CO2, Blood 26 mmol/L (21-32); Chloride, Blood 104 mmol/L (98-108); Glomerular Filtration Rate >60 (60-); Glucose, Blood 94 mg/dL (70-99); Potassium, Blood 4.5 mmol/L (3.5-5.5); Sodium, Blood 136 mmol/L (136-145)
--- NOTE | 2021-04-21 06:45 | NUR ---
PT HAS REMAINED NEARLY PRONE THROUGH THE NIGHT. HAVE BEEN ABLE TO TITRATED FIO2 DOWN TO 70 PERCENT. DENIES ANY COMPLAINTS OF PAIN. EXERTIONAL DYSPNEA AT TIMES WITH DESATRUATIONS. PT DOES RECOVER WITH COACHING. WILL CONTINUE TO MONITOR PT, AND WILL REPORT OFF TO ONCOMING RN.
--- NOTE | 2021-04-21 07:00 | NUR ---
Assumed care of pt at 0700. Report received from Wilfredo PERLA. Pt A&O x 4. Answers questions. Follows commands. Verbalizes needs. Pleasant and cooperative with care. At baseline neuro function. Bedbound because pt has severe hypoxia with exertion. Pt on AirVO at 60 LPM and 80% FiO2. SpO2 90% or greater. Lungs clear t/o, but diminished in bases. SR per monitor. BP stable. Mora catheter draining clear, yellow urine. Bed in lowest position. Call light in reach. Pt denies need at this time.
--- NOTE | 2021-04-21 08:00 | NUR ---
Echocardiogram tech in room. Pt repositioned to left side. Pt did not recover well, so SpO2 increased to 100%.
--- NOTE | 2021-04-21 10:12 | NUR ---
Echocardiogram completed.
--- NOTE | 2021-04-21 10:50 | NUR ---
Telephone updates given to Alonzo viera and Moo.
--- NOTE | 2021-04-21 11:19 | NUR ---
Pt placed on CPAP 5 and 100% FiO2. Pt tolerated well. SpO2 97%. Pt then assisted to prone positioning. After pt in position, pt stated "I can't breathe" and then proceeded to drop SpO2 to 62% before recovering. Dr Telles observing from door while pt being proned. At this time, SpO2 is 95% with CPAP 5 and FiO2 75%.
--- NOTE | 2021-04-21 14:00 | NUR ---
Pt taken off CPAP because she had a nose bleed and bled into mask. No concern that pt aspirated any blood. Pt placed on NRB with 15 LPM flow. SpO2 90% or greater. Afrin given and then about one hour later, pt placed back on high flow, heated, humidified NC.
--- NOTE | 2021-04-21 15:26 | NUR ---
Pt has been placed supine so she can visit with her granddaughter and eat snack that granddaughter brought in. Pt on high flow humidified heated NC with 60 LPM flow and 100% FiO2.
--- NOTE | 2021-04-21 17:27 | NUR ---
Pt sitting up in bed eating dinner with high flow heated humidified NC with 60 LPM flow and 100% FiO2. SpO2 99-100%. FiO2 decreased to 90%. Dr Telles and RT Venegas notified.
--- NOTE | 2021-04-21 18:35 | NUR ---
SUMMARY At this time, pt is A&O x 4. Answers questions, follows commands, verbalizes needs. Pleasant and cooperative with care. Proned for about 4 hours today. At this time, she is on high flow, heated, humidified NC with 55 LPM flow and 80% FiO2. SpO2 97%. Lungs clear with diminished bases. Cough less fequent than noted during previous day shift. Pt's family brought in snacks, which pt has been consuming. Pt tolerated dinner without drop in SpO2 noted, in fact her FiO2 was able to be titrated down because SpO2 was 99-100%. SR per monitor BP stable. Good urine output from lind. Will continue to closely monitor until care handoff and bedside report with oncoming RN.
--- NOTE | 2021-04-21 20:00 | NUR ---
ASSUMED CARE OF PT AT 1915. REPORT RECEIVED. PT PRESENTS IN BED. ALERT AND ORIENTED. PLEASANT AND COOPERATIVE WITH CARE AND ASSESSMENT. DENIES COMPLAINTS OF PAIN OR NAUSEA. AIRVO 55 L/M FLOW WITH FIO2 70 PERCENT. PT MAINTAINS > 90 PERCENT SATURATION. DISCUSSED PLAN FOR HAVING PT PRONE THIS NIGHT. PT IN AGREEMENT. WILL REVIEW CHART AND PLAN OF CARE FOR THIS PT.
--- NOTE | 2021-04-22 | NUR ---
PT MEDICATED WITH 0.5 MG ATIVAN PO PRIOR TO PRONING PT. WITH ASSIST OF TWO RN'S, PT WAS ABLE TO FULLY PRONE. FIO2 AT 70 PERCENT. PT MAINTAINS SATURATIONS > 90 PERCENT. PT ABLE TO REST.
--- NOTE | 2021-04-22 04:00 | NUR ---
PT HAS CONTINUED WITH PRONING. HAVE DECREASED FIO2 INCREMINTALLY TO 50 PERCENT. PT MAINTAINS > 90 PERCENT SATURATIONS. OF NOTE: PT HAS NOT HAD ANY NOSE BLEEDS THIS NIGHT. WILL CONTINUE TO MONITOR AND ENCOURAGE PT WITH PRONING NEEDED.
--- NOTE | 2021-04-22 06:45 | NUR ---
PT HAS TURNED HERSELF TO RIGHT WITH SOMEWHAT PRONING POSITION. PT STATES THAT SHE WAS ABLE TO REST WELL THIS NIGHT. PT ASSISTED TO POSITION TO TAKE AM MEDS. WAS ABLE TO TAKE WITH APPLESAUCE. PT DOES DESATURATE TO 75 PERCENT WITH EXERTION. PLACED FIO2 TO 100 PERCENT AND PT WAS ABLE TO RETURN TO > 90 PERCENT SATURATIONS. HAVE BEEN ABLE TO DECREASE FIO2 BACK TO 70 PERCENT. PT CONTINUES WITHOUT NOSE BLEED THIS NIGHT. WILL CONTINUE TO MONITOR PT, AND WILL REPORT OFF TO ONCOMING RN.
--- NOTE | 2021-04-22 07:15 | NUR ---
Assumed care of pt at 0700. Report received from Wilfredo PERLA. Pt A&O x 4. Answers questions. Follows commands. Verbalizes needs. Pleasant and cooperative with care. SpO2 90% or greater with high flow heated NC, 55 LPM flow and 80% FiO2. Lungs clear, diminished in bases. SR per monitor. Clinimix through peripheral IV. Mora catheter draining clear yellow urine. Bed in lowest position, call light in reach, pt denies need at this time.
--- NOTE | 2021-04-22 12:37 | NUR ---
Pt in prone positioning, tolerating well. High flow, heated, humidified NC settings 55 LPM flow and 80% FiO2. SpO2 94%. Call light in reach, pt denies need at this time.
--- NOTE | 2021-04-22 15:13 | NUR ---
Pt called and asked to end prone positioning. This RN found pt in bed with several bloody kleenex nearby from nosebleed. Pt given Afrin earlier but nose has been slowly bleeding since she began prone positoning. High flow, heated, humidified NC removed and pt put on nonrebreather with 14 LPM, SpO2 95%.
--- NOTE | 2021-04-22 18:37 | NUR ---
SUMMARY Pt proned for three hours this shift. Did not tolerate as well due to very slow, but continuous nosebleed. Pt was given break from high flow heated and humidified NC for about 1.5 hours and wore nonrebreather. Placed back on HHNC so she could eat dinner. Currently 55 LPM flow and 75% FiO2. SpO2 90% or greater. Good urine output this shift. Pt ate minimal breakfast and dinner today. Not seen eating snacks that family brought. Lipids added to clinimix today by accounts receivable representative. Plan to advance bowel care because pt has only had two small, hard, bowel movmements. Pt agreeable to miralax, prune juice, and milk of magnesia. SR per monitor. BP stable. Will continue to closely monitor until care handoff and bedside report with oncoming RN.
--- NOTE | 2021-04-23 05:48 | NUR ---
SHIFT SUMMARY PATIENT FOUND TO BE A PLEASANT LADY WHO IS A&OX4, MONZON WITH GEN WEAKNESS NOTED.UPON ASSESSMENT SHE WAS ON HEATED HF NC WITH 55L, 75% FIO2 SATING HIGH 90'S SO WAS ABLE TO TITRATE DOWN. NOW ON 45L, 60% SATING MID 90'S. ATIVAN GIVEN IN PREP FOR PRONING. WAS ABLE TO PRONE FROM ABOUT [id number] WHEN SHE HAD A NOSE BLEED AND THEN SLEPT ON SIDE. AFRIN GIVEN FOR THIS WITH GOOD RELIEF. CHAVARRIA IMPROVING WITH PATIENT ONLY DESATTING ONCE TO HIGH 80'S WITH QUICK RECOVERY. NO DISTRESS NOTED. NSR ON THE MONITOR IN THE 80'S. VSS. WITH NO BM IN SEVERAL DAYS, PATIENT TOO UNCOMFORTABLE TO EAT MUCH. NO BM YET BUT GI COCKTAIL GIVEN AND PATIENT FEELS THINGS MOVING IN THAT DIRECTION. PENA PATENT DRAINING TO GRAVITY. CLINAMIX AND LIPIDS INFUSING PER ORDER. NO ACUTE CONCERNS AT THIS TIME. WILL CONTINUE TO MONITOR UNTIL REPORT GIVEN TO JOAQUIN PERLA.
--- NOTE | 2021-04-23 09:08 | NUR ---
AM NOTE... ASSUMED CARE OF PT AT 0700. PT IS A&Ox4, PLEASENT AND COOPERATIVE WITH CARE. PT IS COVID 19+ ON THE AIRVO AT 50l AND 65% WITH O2 SATS >90%. PT ATE APROX 10% OF HER BREAKFAST. PT IS IN SR WITH STABLE BPs. NO EDEMA NOTED ON ASSESSMENT L/S CLEAR IN THE UPPER LOBES AND COARSE IN THE LOWER LOBES. BT PRESENT AND HYPOACTIVE, ABD IS SOFT AND NONTENDER TO PALP. PT HAS ATTEMPTED SEVERAL TIMES ON THE BEDPAN TO HAVE A BM BUT HAS NOT BEEN ABLE TO. PT'S PENA IS PATENT AND DRAINING TO GRAVITY. PT HAS ASKED THIS RN TO GET UP TO THE CHAIR AT SOME TIME TODAY, WILL CONSULT WITH THE ICU PROVIDER AND GO FROM THERE. CALL LIGHT IN REACH WILL CONTINUE TO MONITOR.
--- NOTE | 2021-04-23 18:28 | NUR ---
SHIFT SUMMARY... NO ACUTE NEGATIVE CHANGES NOTED THIS SHIFT, PT'S O2 REQUIRMENTS HAVE DECREASED FROM 50l AND 80% TO 45l AND 50% WHILE EATING. WHEN PT IS NOT EATING SHE TOLERATES THE VENTI MASK AT 14l AND 45% KEEPING HER O2 SATS >91%. PT DESATS DOWN TO 84% WITH MOVMENT IN THE BED. PT DENIES ANY PAIN AT THIS TIME. OTHER VS HAVE BEEN STABLE. PT HAS NOT HAD A BM THIS SHIFT BUT HAS TRIED THE BEDPAN SEVERAL TIMES. PENA IS PATENT AND DRAINING DARK YELLOW URINE TO GRAVITY. PT HAS DONE WELL WITH PRONING FOR APROX 6 HOURS THIS SHIFT. CALL LIGHT IN REACH WILL CONTINUE TO MONITOR UNTIL REPORT IS GIVEN TO ONCOMING RN.
--- NOTE | 2021-04-23 21:47 | NUR ---
SHIFT START 1919 PT ON AIRVO 45L 50%. SWITCHED OVER YO VENTURI MASK 10L 45%. PT TOLERATED THIS WELL. AXO. OTHER VSS. STATES BREATHING IS "FEELING BETTER". MEDS ADMINISTERED. PT TO BEGIN PRONING AROUND 2200. CALL LIGHT WITHIN REACH.
--- NOTE | 2021-04-24 01:01 | NUR ---
MID SHIFT PT DOING WELL SLEEPING ON L SIDE. ON VENTI MASK, SPO2 >95% CURRENTLY. NO NEW EVENTS NOTED CURRENTLY.
[2021-04-24 03:35] LABS: BASOPHILS ABSOLUTE AUTO 0.07 K/mm3 (0.00-0.23); BASOPHILS PERCENT AUTO 1 % (0-2); EOSINOPHILS ABSOLUTE AUTO 0.11 K/mm3 (0.00-0.68); EOSINOPHILS PERCENT AUTO 1 % (0-6); Hematocrit 37.4 % (33.0-51.0); Hemoglobin 12.2 g/dL (11.5-16.0); IMMATURE GRAN ABSOLUTE AUTO 0.34 K/mm3 (0.00-0.10); IMMATURE GRAN PERCENT AUTO 4 % (0-1); LYMPHOCYTES ABSOLUTE AUTO 2.15 K/mm3 (0.84-5.20); LYMPHOCYTES PERCENT AUTO 23 % (21-46); MONOCYTES ABSOLUTE AUTO 0.58 K/mm3 (0.16-1.47); MONOCYTES PERCENT AUTO 6 % (4-13); Mean Corpuscular HGB 31.4 pg (26.0-34.0); Mean Corpuscular HGB Conc 32.6 g/dL (31.5-36.5); Mean Corpuscular Volume 96 fL (80-100); Mean Platelet Volume 12.1 fL (9.1-12.4); NEUTROPHILS ABSOLUTE AUTO 6.31 K/mm3 (1.96-9.15); NEUTROPHILS PERCENT AUTO 66 % (41-73); Platelet Count 222 K/mm3 (150-400); RDW Coefficient Variation 14.8 % (11.7-14.2); Red Blood Cell Count 3.88 M/mm3 (3.80-5.20); White Blood Cell Count 9.56 K/mm3 (4.00-11.30)
[2021-04-24 04:00] LABS: Albumin, Blood 2.3 g/dL (3.4-5.0); Anion Gap 6 mmol/L (6-16); Blood Urea Nitrogen 26 mg/dL (8-24); Bun/Creatinine Ratio 30.8 (12.0-20.0); CO2, Blood 24 mmol/L (21-32); Calcium, Blood 8.7 mg/dL (8.5-10.1); Chloride, Blood 99 mmol/L (98-108); Creatinine, Blood 0.85 mg/dL (0.40-1.00); Glomerular Filtration Rate >60 (60-); Glucose, Blood 96 mg/dL (70-99); Phosphorus, Blood 4.4 mg/dL (2.5-4.9); Sodium, Blood 129 mmol/L (136-145)
--- NOTE | 2021-04-24 05:28 | NUR ---
END OF SHIFT PT HAS REMAINS IN SR/ST, AXO, WITH STABLE VS. TOLERATED PRONING WELL WITH DOSE OF IV ATIVAN TO PREVENT ANXIETY WITH THIS. PT ON AIRVO 45L 55% AT BEGINNING OF SHIFT, PLACED ON VENTURI MASK 14L 55% AND HAS REMAINED ON THIS SINCE EXCEPT FOR A FEW EXERTIONAL OCCASIONS WHEN 15L NONREBREATHER USED TO BOOST SATS AND HELP WITH RECOVERY. LUNG SOUNDS STILL COARSE IN BASES. NO BM NOTED THIS SHIFT. MODERATE PENA OUTPUT NOTED. CLINIMIX CONTINUES TO INFUSE. CXR COMPLETED THIS AM. PT W/OUT BLOODY NOSE THIS SHIFT DUE TO BEING OFF AIRVO. PT USING CALLL LIGHT APPROPRIATELY. REMAINS IN AIRBORNE ISOLATION.
--- NOTE | 2021-04-24 08:59 | NUR ---
AM NOTE... ASSUMED CARE OF PT AT 0700. PT IS A&Ox4, PLEASENT AND COOPERATIVE WITH CARE. PT IS ON THE VENTURI MASK AT 14/55 WITH O2 SATS >91%. PT'S ACTIVITY TOLERANCE HAS DECREASED THIS AM FROM YESTERDAY, PT MOVED HERSELF UP IN THE BED SLIGHTLY AND HER O2 SATS DROPPED DOWN TO 74%, PT WAS PLACED BACK ON THE AIRVO AT 45l AND 100% FIO2 AND IT TOOK APROX 5-7MINS FOR THE PT'S O2 SATS TO IMPROVE. PT ATE APROX 5 BITES OF BREAKFAST. L/S VERY DIM CLEAR IN THE UPPER LOBES, COARSE AND VERY DIM IN THE MID/LOWER BASES. RR EVEN AND UNLABORED UNLESS SHE MOVES AND THEN SHE BECOMES DYSPNIC. BT PRESENT AND HYPOACTIVE, PT HAS STILL NOT HAD A BM, PROVIDER AWARE. PT IS IN SR/ST IN THE 90'S-100'S. BP STABLE. NO EDEMA NOTED ON ASSESSMENT. PENA IS PATENT AND DRAINING TO GRAVITY. CALL LIGHT IN REACH WILL CONTINUE TO MONITOR.
--- NOTE | 2021-04-24 11:01 | NUR ---
PT UPDATE... PT GOT UP TO THE RECLINER CHAIR WITH MIN 2 PERSON ASSIST. PT WAS THE AIRVO AT 45l AND 100% FIO2, PT'S O2 SATS DROPPED DOWN TO 79-80% WITH HER GETTING TO THTE SIDE OF THE BED, PT'S O2 SATS SLOWLY RECOVERED AND THE PT WAS ABLE TO SELF TRANSFER TO THE RECLINER CHAIR BY STANDING AND TAKING A FEW STEPS. ONCE IN THE CHAIR THE PT'S O2 SATS RECOVERED AFTER A FEW MINS. AFTER THE PT WAS RECOVERED IN THE CHAIR THE PT WAS SWITCHED FROM THE AIRVO TO THE VENTURI MASK AT 14/45. PT'S O2 SATS DROPPED DOWN TO THE LOW 80'S, THE MASK WAS MAXED OUT AND THE PT'S O2 SATS WERE AT 82-85%, A HIGH FLOW NC WAS PLACED IN THE PT'S MOUTH SET AT 7L BUT PT'S O2 SATS WOULD NOT GO ABOVE 86%. PT WAS PLACED BACK ON THE AIRVO AT 40L AND 85%FIO2, THIS KEPT THE PT'S O2 SATS >90%. PT'S OTHER VS STABLE DURING THIS TIME. CALL LIGHT IN REACH WILL CONTINUE TO MONITOR.
--- NOTE | 2021-04-24 16:05 | NUR ---
PT UPDATE... PT CONTINUES TO BE UP IN THE RECLINER CHAIR, PT HAS BEEN REPOSITIONED SEVERAL TIMES T/O THE SHIFT IN THE CHAIR. PT WAS GIVEN A BED BATH WHILE IN THE CHAIR, PT WAS ABLE TO STAND UP USING THE WALKER WITH MIN ASSIST. PT'S O2 SATS DROPPED FROM 94-95% TO 83% ON 40L AND 65%FIO2 BUT PT RECOVERED QUICKLY. PT'S HR INCREASED FROM THE LOW 100'S TO THE 120'S FOR APROX 5 MINS THEN WENT BACK DOWN TO THE 90'S-100'S. THE PT WAS ABLE TO BRUSH HER OWN HAIR AND HELP WITH THE GOWN WELL. WILL CONTINUE TO MONITOR.
--- NOTE | 2021-04-24 17:37 | NUR ---
SHIFT SUMMARY... NO ACUTE NEGATIVE CHANGES NOTED THIS SHIFT. PT'S VS HAVE BEEN STABLE. PT HAS BEEN UP IN THE RECLINER CHAIR SINCE THIS AM. PT HAS BEEN ON THE AIRVO, AIRVO SETTINGS HAVE BEEN TITRATED DOWN TO 40L AND 45%FIO2 WITH O2 SATS >91%, PT HAS BEEN EATING DINNER WITH THESE SETTINGS WITH NO DESATS BELOW 91%. PT HAD A BEDBATH AND WAS ABLE TO STAND WITH MIN ASSIST WITH THE WALKER. PT'S PENA IS PATENT AND DRAINING DARK YELLOW URINE TO GRAVITY. PT HAS NOT HAD A BM, PT REQUESTED A SUPPOSITORY TO BE GIVEN AFTER DINNER. PT'S SON CAME DURING VISITING HOURS. PT'S DEMEANOR HAS GREATLY IMPROVED WITH BEING ABLE TO GET UP IN THE RECLINER CHAIR TODAY. CLINIMIX RUNNING AT 50MLS/HR, LIPIDS STARTED PER ORDERS RUNNING AT 25MLS/HR. CALL LIGHT IN REACH WILL CONTINUE TO MONITOR UNTIL REPORT IS GIVEN TO ONCOMING RN.
--- NOTE | 2021-04-24 19:30 | NUR ---
ASSUMED CARE OF PT, REPORT RECEIVED. PT IS NOTED RECLINING IN BED AND WATCHING TV, NO VISIBLE DISTRESS NOTED AT THIS TIME, SATS MAINTAINING WITH HEATED HIGH FLOW OXYGEN VIA BIPAP 40 L/MIN AND 45% FIO2, SATS 92-93% AT REST. CLINIMIX NOTED INFUSING AT 50 ML/HR AND LIPIDS AT 25 ML/HR. WILL FURTHER ASSESS WITH HS MEDS.
[2021-04-25 03:33] LABS: BASOPHILS ABSOLUTE AUTO 0.06 K/mm3 (0.00-0.23); BASOPHILS PERCENT AUTO 0 % (0-2); EOSINOPHILS ABSOLUTE AUTO 0.06 K/mm3 (0.00-0.68); EOSINOPHILS PERCENT AUTO 0 % (0-6); Hematocrit 34.7 % (33.0-51.0); Hemoglobin 11.7 g/dL (11.5-16.0); IMMATURE GRAN ABSOLUTE AUTO 0.72 K/mm3 (0.00-0.10); IMMATURE GRAN PERCENT AUTO 5 % (0-1); LYMPHOCYTES ABSOLUTE AUTO 1.65 K/mm3 (0.84-5.20); LYMPHOCYTES PERCENT AUTO 12 % (21-46); MONOCYTES ABSOLUTE AUTO 0.72 K/mm3 (0.16-1.47); MONOCYTES PERCENT AUTO 5 % (4-13); Mean Corpuscular HGB 31.2 pg (26.0-34.0); Mean Corpuscular HGB Conc 33.7 g/dL (31.5-36.5); Mean Corpuscular Volume 93 fL (80-100); Mean Platelet Volume 10.8 fL (9.1-12.4); NEUTROPHILS PERCENT AUTO 78 % (41-73); Platelet Count 318 K/mm3 (150-400); RDW Coefficient Variation 14.4 % (11.7-14.2); RDW Standard Deviation 48.9 fL (35.1-46.3); Red Blood Cell Count 3.75 M/mm3 (3.80-5.20); White Blood Cell Count 14.31 K/mm3 (4.00-11.30)
[2021-04-25 03:54] LABS: Albumin, Blood 2.5 g/dL (3.4-5.0); Anion Gap 7 mmol/L (6-16); Blood Urea Nitrogen 25 mg/dL (8-24); Bun/Creatinine Ratio 33.6 (12.0-20.0); CO2, Blood 23 mmol/L (21-32); Calcium, Blood 8.5 mg/dL (8.5-10.1); Chloride, Blood 98 mmol/L (98-108); Creatinine, Blood 0.74 mg/dL (0.40-1.00); Glomerular Filtration Rate >60 (60-); Glucose, Blood 130 mg/dL (70-99); Phosphorus, Blood 4.3 mg/dL (2.5-4.9); Potassium, Blood 4.4 mmol/L (3.5-5.5); Sodium, Blood 128 mmol/L (136-145)
--- NOTE | 2021-04-25 06:14 | NUR ---
PT RESTS QUIETLY THROUGHOUT SHIFT, DID DECLINE TO PRONE FOR SLEEP HOWEVER SHE AGREED TO BE POSITIONED VERY HIGH UP ON LEFT SIDE. SATS MAINTAINED AT REST WITH HEATED HIGH FLOW OXYGEN VIA BIPAP AT 40 L/MIN AND 45% FIO2, SHE CONTINUES TO DESAT WITH SPEECH AND INCREASES IN ACTIVITY HOWEVER RECOVERS WITHIN 2 MINUTES OF RETURN TO REST. PRESSURES MAINTAIN STABLE, SKIN REMAINS PWD, NO EDEMA. USES CALL LIGHT WELL TO MAKE NEEDS KNOWN. STATES THAT HER BREATHING IS FEELING MUCH IMPROVED FROM ADMISSION.
--- NOTE | 2021-04-25 08:45 | NUR ---
Assumed care of this pt this morning. She is A/o x 4 with no c/o pain or discomfort. Per RT she was switched over to the venturi mask and 15 LPM and with the mask on she has an O2 Sat in the low 90's. while taking her pills or bites of food the pt desats quickly and the mask must be replaced again until sats return to greater than 90 %. The pt was repositioned to elevate HOB but she did not want to try proning at this time. Dr Camacho rounded on this pt this morning and so far has not gieven any new orders. Pt is able to make her needs known and has her call light in reach and she is visible from the nurses station.
--- NOTE | 2021-04-25 13:57 | NUR ---
Pt. is in bed reading spoke to pt. from the door and offered prayers and blessings.
--- NOTE | 2021-04-25 17:22 | NUR ---
Shift Summary Pt has been a/o x 4 all day. He has had some chest pain as described in previous notes. Currently he denies chest pain and has no diaphoresis. TR band is off and a clear op site is in place, still with no bleeding. VSS. Serial trops are scheduled for this opal. remains at the bedside. Pt is able to make his needs known, he uses the urinal at the bedside and has his call light in reach.
--- NOTE | 2021-04-25 17:32 | NUR ---
Shift Summary Pt has been a/o x 4 with no c/o pain or discomfort. She remains in a venturi mask at 15 LPM and with the assistance of RT we have humidified her air since she has been having nose bleeds, she reports it as being more comfortable. The IV nutrition continues to infuse as ordered. Pt declined proning today but we did help her transfer over to the recliner after her bed bath. Her lind is patent. After the de icer finisher saw her today he decided to keep her ICU status. Her son came to visit this afternoon for a short time. The pt is able to make her needs known and calls appropriately when needed.
--- NOTE | 2021-04-25 20:00 | NUR ---
ASSUMED CARE AT 1905, PT HAS BEEN UP RESTING IN RECLINER CHAIR WITH VENTURI MASK IN PLACE, SATS HAVE BEEN MID TO UPPER 90S THIS SHIFT, OXYGEN IS CURRENTLY NOTED AT 9 L/MIN, PT STATES THAT BREATHING IS FEELING MUCH IMPROVED FROM YESTERDAY. DENIES PAIN, DENIES NAUSEA, DENIES CP/PRESSURE, IS NOTED TO NOT DESATURATE WITH SPEECH AT THIS TIME. HRR, PRESSURES IMPROVED FOLLOWING BOLUS ADMINISTRATION, WILL CONT TO MONITOR. SKIN PALE WARM AND DRY, BRISK CAP REFILL, NO EDEMA NOTED, FULL PULSES. BOWEL TONES PRESENT, ABD SOFT, NO TENDERNESS REPORTED TO PALP. PENA REMAINS IN PLACE DRAINAGE IN TUBING IS NOTED TO BE CLEAR RED AT THIS TIME, WILL MONITOR. CLINIMIX INFUSING AT 50 ML/HR AND LIPIDS AT 25 ML/HR. PT DENIES NEEDS AT THIS TIME, WOULD LIKE TO RETURN TO BED AT 2100.
--- NOTE | 2021-04-25 22:41 | NUR ---
CLINIMIX RATE CHART CHECK COMPLETED, CLINIMIX ORDERS REVIEWED WITH PHARMACIST, RATE INCREASED TO 90 ML/HR AT THIS TIME PER ORDERS.
[2021-04-26 03:26] LABS: BASOPHILS ABSOLUTE AUTO 0.09 K/mm3 (0.00-0.23); BASOPHILS PERCENT AUTO 1 % (0-2); EOSINOPHILS ABSOLUTE AUTO 0.21 K/mm3 (0.00-0.68); EOSINOPHILS PERCENT AUTO 1 % (0-6); Hematocrit 31.5 % (33.0-51.0); Hemoglobin 10.6 g/dL (11.5-16.0); IMMATURE GRAN ABSOLUTE AUTO 0.95 K/mm3 (0.00-0.10); IMMATURE GRAN PERCENT AUTO 6 % (0-1); LYMPHOCYTES ABSOLUTE AUTO 2.68 K/mm3 (0.84-5.20); LYMPHOCYTES PERCENT AUTO 16 % (21-46); MONOCYTES ABSOLUTE AUTO 1.08 K/mm3 (0.16-1.47); MONOCYTES PERCENT AUTO 6 % (4-13); Mean Corpuscular HGB 31.6 pg (26.0-34.0); Mean Corpuscular HGB Conc 33.7 g/dL (31.5-36.5); Mean Corpuscular Volume 94 fL (80-100); Mean Platelet Volume 10.7 fL (9.1-12.4); NEUTROPHILS ABSOLUTE AUTO 12.23 K/mm3 (1.96-9.15); NEUTROPHILS PERCENT AUTO 71 % (41-73); Platelet Count 311 K/mm3 (150-400); RDW Coefficient Variation 14.6 % (11.7-14.2); RDW Standard Deviation 50.2 fL (35.1-46.3); Red Blood Cell Count 3.35 M/mm3 (3.80-5.20); White Blood Cell Count 17.24 K/mm3 (4.00-11.30)
[2021-04-26 03:43] LABS: Albumin, Blood 2.4 g/dL (3.4-5.0); Anion Gap 8 mmol/L (6-16); Blood Urea Nitrogen 35 mg/dL (8-24); Bun/Creatinine Ratio 31.2 (12.0-20.0); CO2, Blood 24 mmol/L (21-32); Calcium, Blood 8.4 mg/dL (8.5-10.1); Chloride, Blood 96 mmol/L (98-108); Creatinine, Blood 1.12 mg/dL (0.40-1.00); Glomerular Filtration Rate 51 (60-); Glucose, Blood 122 mg/dL (70-99); Phosphorus, Blood 5.1 mg/dL (2.5-4.9); Potassium, Blood 4.3 mmol/L (3.5-5.5); Sodium, Blood 128 mmol/L (136-145)
[2021-04-26 03:53] LABS: BAND PERCENT MAN 2 % (0-8); BASOPHILS PERCENT MAN 0 % (0-2); EOSINOPHILS ABSOLUTE MAN 0.34 K/mm3 (0.00-0.68); EOSINOPHILS PERCENT MAN 2 % (0-6); LYMPHOCYTES ABSOLUTE MAN 2.24 K/mm3 (0.84-5.20); LYMPHOCYTES PERCENT MAN 13 % (21-46); MONOCYTES ABSOLUTE MAN 0.68 K/mm3 (0.16-1.47); MONOCYTES PERCENT MAN 4 % (4-13); NEUTROPHILS ABSOLUTE MAN 13.96 K/mm3 (1.96-9.15); SEG NEUTROPHILS PERCENT MAN 79 % (41-73); TOTAL CELLS COUNTED 100
--- NOTE | 2021-04-26 06:28 | NUR ---
PT RESTS QUIETLY THROUGHOUT SHIFT, DOES MAINTAIN SATS WITH VENTURI MASK AT 9 L/MIN, CONTINUES TO REPORT THAT RESPIRATIONS ARE FEELING IMPROVED FROM ADMIT, IS NOTED TO HAVE DESATS TO THE MID TO UPPER 80S WITH INCREASES IN ACTIVITY HOWEVER DOES CONTINUE TO RECOVER QUICKLY ONCE PT RETURNS TO REST. PRESSURES MAINTAIN IMPROVED FOLLOWING LR 1 LITER BOLUS AT THE BEGINNING OF THE SHIFT, REMAINS IN SINUS RHYTHM, RATE INCREASES TO 110-120S BRIEFLY WITH INCREASES IN ACTIVITY, RETURNS TO BASELINE OF 80-90S WITHIN 1 MINUTE OF RETURN TO REST. LOW APPETITE CONTINUES, PT STATES THAT SHE WILL ATTEMPT TO DRINK MORE WATER TODAY. PT DID NOT PRONE THIS SHIFT BUT ACCEPTED TO SLEEP HIGH ON RIGHT SIDE, WAS NOTED TO SHIFT POSITION INTERMITTENTLY INDEPENDENTLY.
--- NOTE | 2021-04-26 09:00 | NUR ---
ASSUMED CARE CALLED TO PT ROOM BY REGINA THIS AM. PT. REPORTS SHARP NEW ONSET CHEST PAIN. PT REPORTS PAIN 8/10, SHARP TO LEFT SIDE OF CHEST, NOT CONSTANT. PT O2 NOTED TO BE KINKED, PT SPO2 DOWN TO 74%, HOWEVER RECOVERED TO 92% ONCE KINK REMOVED FROM TUBING. PT. REPORTS PAIN THEN DECREASED. DR. SINGH AT BEDSIDE. EKG AND TROPONIN ORDERED. PT. REPORTS ANXIETY TODAY WELL DUE TO BEING SICK WELL. PT. DENIES OTHER PAIN. REMAINS ON VENTURI MASK AT 9L. PT. HAD DRIED BLOOD TO FACE FROM BLOODY NOSE. PT. ALSO HAS BRUISIN T/O ABD AND LEGS. DENIES ANY ABD PAIN. AM CARE PROVIDED AND PT SET UP FOR BREAKFAST. REPORTS NO LONGER HAVING CHEST PAIN PRIOR TO EXIT OF ROOM. CALL LIGHT IN REACH, AWAITING LAB.
--- NOTE | 2021-04-26 09:32 | NUR ---
BLOOD PRESSURE PT. NO LONGER HAVING CHEST PAIN HOWEVER BP TRENDING DOWN. DR. DORAN NOTIFIED. AWAITING TROP RESULTS.
--- NOTE | 2021-04-26 11:17 | NUR ---
DR. DORAN IN TO ASSESS PT. PLANS FOR PICC LINE PLACEMENT. PT. REMAINS HYPOTENSIVE, 1L LR GIVEN PER DRFili ORDER. BLOOD CULTURES DRAWN.
--- NOTE | 2021-04-26 13:41 | NUR ---
PT UP TO BEDSIDE CHAIR FOR LUNCH. TOLERATED WELL, VERY WEAK. PT DENIES ANY DIZZINESS WITH TRANSFER. REMAINS HYPOTENSIVE AFTER FLUIDS. DR. DORAN NOTIFIED,LEVOPHED GTT ORDERED. NO CHANGES TO OXYGENATION.
--- NOTE | 2021-04-26 13:45 | NUR ---
Met pt. her nurse attending to her needs , prayed and blessed her .
--- NOTE | 2021-04-26 15:07 | NUR ---
HAND OFF REPORT TO CELY PERLA. LEVOPHED GTT STARTED, TITRATED TO 5MCG/KG/MIN PRIOR TO HAND OFF. PT REMAINS UP IN BEDSIDE CHAIR. DR. DORAN UPDATED ON PT CONDITION. CALL LIGHT IN REACH.
--- NOTE | 2021-04-26 17:01 | NUR ---
SUMMARY: I ASSUMED CARE OF NAHOMI AT 1430, SHE WAS SITTING UP IN THE RECLINER WITH A DECAF COLD COFFEE INFRONT OF HER. SHE IS ON THE VENTI MASK AT 40% AND HER LUNGS ARE DIMINISHED THROUGHOUT. SHE HAS AN OCC COUGH WITH NO PRODUCTION. SHE IS REMINDED THAT IF SHE DOES COUGH SOMETHING UP WE ARE GOING TO COLLECT IT. SHE DOESN'T HAVE MUCH OF AN APPETITE, HER CLINIMIX IS INFUSING AT THIS TIME @ 90ML/HR. HER BLOOD PRESSURE IS LABILE AND HAD ORDERED LEVOPHED TO BE STARTED. HER LEVOPHED HAS BEEN INCREASED TO 10MCG/MIN WITH GOOD RESULTS, HE ALSO ORDERED AN H/H, TROPONIN AND 1 LITER OF NS OVER 3 HOURS WHICH IS STILL INFUSING. SHE HAS BEEN TEARFUL AND UPSET THIS AFTERNOON, FEELING DOWN AND DISCOURAGED. I SPENT QUITE A BIT OF TIME TRYING TO ENCOURAGE HER AND PRAYED WITH HER. REMINDED HER OF HER JOURNEY TO HERE AND HOW WELL SHE IS DOING. THIS HAS HELPED. HER URINE OUTPUT IS LOW AND AWARE.
--- NOTE | 2021-04-26 18:22 | NUR ---
PT IS WITH SON AND , CONTINUES IN THE RECLINER. SHE SEEMS MORE JOVIAL WITH THE FAMILY PRESENT. TALKING TO FAMILY MEMBERS ON THE PHONE. STILL DOESN'T HAVE ANY APPETITE, TRYING TO TAKE IN FLUIDS. FEELING FRUSTRATED AND DEPRESSED BUT IMPROVING.
[2021-04-26 18:39] LABS: Hematocrit 30.9 % (33.0-51.0); Hemoglobin 10.3 g/dL (11.5-16.0)
--- NOTE | 2021-04-26 19:50 | NUR ---
VOMITING PT INITIALLY DENIED NAUSEA HOWEVER AFTER ASSISTED BACK TO BED AND DURING POSITIONING FOR PT COMFORT SHE IS NOTED TO HAVE LARGE AMOUNT OF BROWN EMESIS. SHE STATES "HAPPENS EVERY TIME I HAVE MILK" THIS RN INQUIRED REGARDING WHETHER OR NOT PT HAD EATEN ANYTHING WITH MILK PRODUCTS TODAY AND PT REPORTS THAT SHE HAD SOME NUTRITIONAL SUPPLEMENT PUDDING WITH DINNER. SHE STATES THAT STOMACH UPSET/HEARTBURN REPORTED EARLIER FOR WHICH SHE TOOK TUMS IS NOW FULLY RESOLVED. ZOFRAN ADMIN. PARTIAL BEDBATH AND LINEN CHANGE COMPLETED, NEW VENTURI MASK APPLIED. PT TOLERATED WELL.
[2021-04-27 01:16] LABS: Source, Urine Catheter
[2021-04-27 01:18] LABS: Appearance, Urine Hazy (Clear); Bilirubin, Urine Neg (Neg); Blood, Urine 5+ (Neg); Color, Urine Yellow (P-Yellow); Glucose Qualitative, Urine Neg (Neg); Ketones, Urine Neg (Neg); Leukocyte Esterase, Urine 1+ (Neg); Nitrite, Urine Neg (Neg); Protein, Urine 1+ (Neg); Urobilinogen, Urine NORM (Normal)
[2021-04-27 01:36] LABS: Red Blood Cells, Urine 50-100 /hpf (0-2)
[2021-04-27 01:37] LABS: Bacteria Mod /hpf; Calcium Oxalate Crystals Few /hpf; Mucus Light (0-Heavy); Squamous Epithelial Cells Not Seen /hpf (Few); Yeast/Fungi Urine Few /hpf
--- NOTE | 2021-04-27 02:00 | NUR ---
CALL PLACED TO DR PHIPPS, HOSPITALIST CAR WASH SUPERVISOR, UA RESULTS REVIEWED, NO NEW ORDERS AT THIS TIME.
[2021-04-27 04:00] LABS: BASOPHILS ABSOLUTE AUTO 0.08 K/mm3 (0.00-0.23); BASOPHILS PERCENT AUTO 0 % (0-2); Hematocrit 24.3 % (33.0-51.0); Hemoglobin 8.4 g/dL (11.5-16.0); LYMPHOCYTES ABSOLUTE AUTO 3.64 K/mm3 (0.84-5.20); LYMPHOCYTES PERCENT AUTO 14 % (21-46); MONOCYTES ABSOLUTE AUTO 1.66 K/mm3 (0.16-1.47); MONOCYTES PERCENT AUTO 6 % (4-13); Mean Corpuscular HGB 32.4 pg (26.0-34.0); Mean Corpuscular HGB Conc 34.6 g/dL (31.5-36.5); Mean Corpuscular Volume 94 fL (80-100); Mean Platelet Volume 11.4 fL (9.1-12.4); NRBC ABSOLUTE 0.04 K/mm3 (0.00-0.02); NRBC Auto 0.2 /100 WBC (0.0-0.2); Platelet Count 301 K/mm3 (150-400); RDW Coefficient Variation 14.5 % (11.7-14.2); RDW Standard Deviation 48.9 fL (35.1-46.3); Red Blood Cell Count 2.59 M/mm3 (3.80-5.20); White Blood Cell Count 26.66 K/mm3 (4.00-11.30)
[2021-04-27 04:01] LABS: EOSINOPHILS ABSOLUTE AUTO 0.14 K/mm3 (0.00-0.68); EOSINOPHILS PERCENT AUTO 1 % (0-6); IMMATURE GRAN ABSOLUTE AUTO 2.34 K/mm3 (0.00-0.10); IMMATURE GRAN PERCENT AUTO 9 % (0-1); NEUTROPHILS PERCENT AUTO 71 % (41-73)
[2021-04-27 04:16] LABS: Albumin, Blood 2.3 g/dL (3.4-5.0); Anion Gap 9 mmol/L (6-16); Blood Urea Nitrogen 48 mg/dL (8-24); Bun/Creatinine Ratio 43.2 (12.0-20.0); CO2, Blood 20 mmol/L (21-32); Calcium, Blood 7.6 mg/dL (8.5-10.1); Chloride, Blood 96 mmol/L (98-108); Creatinine, Blood 1.11 mg/dL (0.40-1.00); Glomerular Filtration Rate 51 (60-); Glucose, Blood 117 mg/dL (70-99); Phosphorus, Blood 4.4 mg/dL (2.5-4.9); Potassium, Blood 4.5 mmol/L (3.5-5.5); Sodium, Blood 125 mmol/L (136-145)
[2021-04-27 04:19] LABS: BAND PERCENT MAN 10 % (0-8); BASOPHILS PERCENT MAN 0 % (0-2); EOSINOPHILS ABSOLUTE MAN 0.53 K/mm3 (0.00-0.68); EOSINOPHILS PERCENT MAN 2 % (0-6); LYMPHOCYTES ABSOLUTE MAN 3.19 K/mm3 (0.84-5.20); LYMPHOCYTES PERCENT MAN 12 % (21-46); MONOCYTES ABSOLUTE MAN 2.13 K/mm3 (0.16-1.47); MONOCYTES PERCENT MAN 8 % (4-13); NEUTROPHILS ABSOLUTE MAN 20.79 K/mm3 (1.96-9.15); SEG NEUTROPHILS PERCENT MAN 68 % (41-73); TOTAL CELLS COUNTED 100
--- NOTE | 2021-04-27 04:22 | NUR ---
CALL PLACED TO DR PHIPPS, AWAITING RETURN CALL.
--- NOTE | 2021-04-27 04:26 | NUR ---
SPOKE WITH DR PHIPPS REGARDING AM LABS AND PRESSOR REQUIREMENTS WELL PATIENT'S REPORTS OF GENERALIZED MALAISE. PER DR PHIPPS'S RECOMMENDATION, WILL REVIEW WITH DR DORAN.
--- NOTE | 2021-04-27 04:59 | NUR ---
SPOKE WITH DR DORAN REGARDING AM LABS, PT GENERAL MALAISE, VITAL SIGNS, PRESSOR REQUIREMENTS, AND PT REPORT OF "I FEEL LIKE I DON'T HAVE ANY FIGHT LEFT IN ME" ORDERS RECEIVED.
--- NOTE | 2021-04-27 05:05 | NUR ---
PT CALL LIGHT ON: PT REPORTS VENTURI MASK CAME APART, AUDIBLE RESPIRATORY DISTRESS/SHORT SENTENCE LENGTH NOTED. STAFF IMMEDIATELY TO ROOM AND NONREBREATHER AT 15 L/MIN APPLIED WHILE VENTURI MASK REASSEMBLED. PT REPORTS NAUSEA, SMALL AMOUNTS OF EMESIS AT THIS TIME. PLASTICS SCIENTIST CONTACTED FOR ANTIEMETIC ORDERS. THIS RN REQUESTS PLASTICS SCIENTIST ALSO REQUEST MD TO BEDSIDE FOR PT EVALUATION.
--- NOTE | 2021-04-27 07:00 | NUR ---
0525: DR PHIPPS ARRIVES TO BEDSIDE FOR PT EVAL, PLAN TO INTUBATE SECONDARY TO PT INCREASING FATIGUE AND CONTINUED NAUSEA WITH VOMITING. CONCERN FOR POTENTIAL ASPIRATION. 0549: ETOMIDATE 15 MG IV ADMINISTERED, SUCCINYLCHOLINE 100 MG IV ADMINISTERED. 0551: PT VOMITING COPIOUS AMOUNTS OF DARK BROWN EMESIS, IMMEDIATELY SUCTIONED. 0557: 7.5 ETT MEASURING 24 CM AT TEETH 0600: SATS HIGH 60S TO LOW 80S, RT X 2 AT BEDSIDE FOR VENT SETUP, CURRENTLY BAGGING PT. THIS RN REQUESTS TRUCKING SUPERVISOR CONTACT DR DORAN TO COME TO BEDSIDE. 0605: PROPOFOL STARTED AT 25 MCG/KG/MIN, PT STARTING TO WAKE UP AND FIGHT VENTILATION 0610: IMAGING AT BEDSIDE FOR PORTABLE CXR, LEVOPHED INCREASED TO 20 MCG/MIN 0615: TRUCKING SUPERVISOR NOTIFIES STAFF AT BEDSIDE OF ORDERS TO PRONE PT SECONDARY TO CONTINUING HYPOXIA 0624: OG INSERTION COMPLETE, AIR AUSCULTATED OVER LUQ, GOOD RETURN OF GASTRIC CONTENTS. LEVOPHED INCREASED TO 30 MCG/MIN SECONDARY TO CONTINUING HYPOTENSION. 0627: PORTABLE CXR FOR LINE PLACEMENT COMPLETE. APPROXIMATELY 0635 PT POSITIONED PRONE VIA 2 RNS, PT PORCELAIN ENAMELING SUPERVISOR, AND 2 RTS AT BEDSIDE. SATS CONTINUE 60-70S, 0640: DR DORAN TO BEDSIDE 0645: PHARMACIST CONTACTED VIA [employer] FOR VERBAL ORDERS FOR EPINEPHRINE GTT AND NIMBEX GTT MULTIPLE RTS AND DR DORAN REMAIN AT BEDSIDE. REPORT TO DAY SHIFT RN.
--- NOTE | 2021-04-27 10:12 | NUR ---
Spiritual care responds to request for services around 0725. Many family members are present. Patient is [employer] and no [employer] is readily available. After full disclosure that I am not a Electrical Prospecting Observer, a non-Scientology version of the anointing of the sick prayer is provided as well as a spontaneous prayer. I also conduct some life review conversation as well as grief support once patient expires at approx. 0850. Family clearly loves patient and grieve appropriately and appear to be comforted by spiritual care and the hospital staff. Family voice their appreciation.
--- NOTE | 2021-04-27 10:49 | NUR ---
ASSUMED CARE OF PT AT 0600. PT BEING BAGGED AND PREPPED FOR PRONING D/T POOR OXYGENATION. SATS IN THE 70'S WHILE BEING BAGGED. PT ON PROPOFOL 15 MCG/KG/MIN, VASOPRESSIN 0.04 UNITS/MIN, LEVOPHED @ 20 MCG/MIN. 0620: PT PRONED. SATS NOT IMPROVING AT THIS TIME. PT PLACE BACK ON VENT. SETTINGS AC 38/10/100%. 0630: DR. DORAN AT BEDSIDE. DECISION TO START EPINEPHRINE GTT @ 37.5 MLS/HR (VERIFIED RATE WITH PHARMACY), INCREASED RATE TO 70 MLS/HR. LEVOPHED INCREASED TO 30 MCG/MIN. UNABLE TO GET AN ACCURATE BLOOD PRESSURE AT THIS TIME. PT'S SATS IN 60'S. PT HAS CREPITIS BILATERAL UPPER CHEST. BLOOD NOTED COMING FROM BILATERAL NARES. ORDER TO START NIMBEX. PT'S FAMILY CALLED AND UPDATED WITH PT'S DECLINE AND ENCOURAGED TO COME TO HOSPITAL. 0720: UNPRONED D/T WORSENING OXYGENATION. PT'S SATS 50-60% WITH GOOD WAVEFORM. 0743: CODE [facility]UE CALLED D/T PEA. PT BAGGED AND CPR BEGAN. PT GIVEN EPIX2. PULSE PRESENT AT 0750. 0751: FAMILY AT BEDSIDE. REQUESTING FULL CARE UNTIL REST OF FAMILY IS ABLE TO BE HERE. PASTORAL CARE AT BEDSIDE ASSISTING FAMILY. 0840: FAMILY DECIDES COLLECTIVELY TO TURN PRESSORS OFF BUT KEEP VENTILATOR ON. 0850: TIME OF . PT EXTUBATED BY THIS RN FOLLOWING . FAMILY REMAINS AT BEDSIDE. PT'S DAUGHTER IN [place] GATHERED AND TOOK POSSESSION OF PT'S THINGS. [facility] CONTACTED AT FAMILY REQUEST. 1045: BODY RELEASED TO [facility]
== END 2021-04-27 08:50 | DRG 177 ==
LOC: ER 15:49 → ICUE 19:40 → MEDS 19:40 → PCU 04-15 16:16 → ICUE 04-16 18:41
PROVIDERS: Internal Medicine; Internal Medicine Critical Care Medicine; Nurse Practitioner Acute Care; Physician Assistant; ADMIT Internal Medicine
PROC: 8E0ZXY6 Isolation (ICD-10-PCS; principal; 2021-04-09)
PROC: XW033E5 Introduction of Remdesivir Anti-infective into Peripheral Vein, Percutaneous Approach, New Technology Group 5 (ICD-10-PCS; 2021-04-10)
PROC: 5A0955A Assistance with Respiratory Ventilation, Greater than 96 Consecutive Hours, High Flow/Velocity Cannula (ICD-10-PCS; 2021-04-20)
PROC: XW033H5 Introduction of Tocilizumab into Peripheral Vein, Percutaneous Approach, New Technology Group 5 (ICD-10-PCS; 2021-04-20)
PROC: 3E033XZ Introduction of Vasopressor into Peripheral Vein, Percutaneous Approach (ICD-10-PCS; 2021-04-26)
PROC: 02HV33Z Insertion of Infusion Device into Superior Vena Cava, Percutaneous Approach (ICD-10-PCS; 2021-04-26)
PROC: 0BH18EZ Insertion of Endotracheal Airway into Trachea, Via Natural or Artificial Opening Endoscopic (ICD-10-PCS; 2021-04-27)
PROC: 5A12012 Performance of Cardiac Output, Single, Manual (ICD-10-PCS; 2021-04-27)
DX: U07.1 COVID-19 (principal); J12.82 Pneumonia due to coronavirus disease 2019; J96.01 Acute respiratory failure with hypoxia; I26.09 Other pulmonary embolism with acute cor pulmonale; I46.8 Cardiac arrest due to other underlying condition; I10 Essential (primary) hypertension; E87.6 Hypokalemia; E03.9 Hypothyroidism, unspecified; K59.00 Constipation, unspecified; F41.9 Anxiety disorder, unspecified; Z90.710 Acquired absence of both cervix and uterus; Z79.899 Other long term (current) drug therapy
CPT/HCPCS: 31500; 36415; 36569; 36600; 51703; 71045; 71260; 80048; 80053; 80069; 81001; 81003; 82803; 82947; 83735; 83880; 84100; 84145; 84484; 85014; 85018; 85025; 85027; 85379; 87040; 87086; 92950; 93005; 93010; 93306; 94002; 94660; 94762; 96374; 99285-25; A9270; C1751; C1894; J0171; J0330; J0696; J1100; J1650; J1940; J2060; J2250; J2405; J2704; J2765; J3262; J3370; J3480; J7030; J7040; J7050; J7060; J7120; Q9967